=== PATIENT | female | born 1935 | race Caucasian/White ===

== ENCOUNTER 2016-06-28 23:13 | Inpatient (IN) | payer MEDICARE, OTHER ==
[~2016-06-28] VITALS: Ht 165.1 cm; Wt 54.9 kg
[2016-06-28 23:23] VITALS: Ht 165.1 cm; Wt 54.9 kg
[2016-06-28] MEDS ORDERED: SOD CHLORIDE 0.9% 500 ML IV STA (23:28)
[2016-06-29] VITALS (11 sets, daily range): BP systolic 103–141; BP diastolic 58–65; PULSE 62–70; RESP 16–20; TEMP 98.3
--- NOTE | 2016-06-29 00:19 | RADRPT ---
PROCEDURE: CT Brain without contrast. CLINICAL INDICATION: Neurologic deficit, code stroke. History of glioblastoma and radiation therap y. TECHNIQUE: A CT of the brain was performed utilizing axial sections from the skull base through th e vertex without contrast. Multiplanar re-formations were generated. Images were reviewed on a high- resolution PACS workstation. CTDIvol: 39.57 mGy. DLP: 713.51 mGy-cm. One or more of the following dose reduction techniques were used: - Automated exposure control. - Adjustment of the mA and/or kV according to patient size. - Use of iterative reconstruction technique. COMPARISON: None available FINDINGS: There is mild to moderate generalized volume loss. No hydrocephalus is seen. No definite intracrani al neoplasm is identified. There is no mass effect. No acute intracranial hemorrhage is identified. There is no extra-axial collection. No CT evidence of acute infarction is identified. There is di ffuse low attenuation in the supratentorial white matter, nonspecific. There are mild atherosclerot ic arterial calcifications. There is no significant mucosal disease in the paranasal sinuses. The visualized mastoid air cells a re clear. There is an old right occipital keegan hole. The extracranial soft tissues are unremarkable. The patient is status post bilateral lens replacement surgery. IMPRESSION: 1. No CT evidence of acute infarction or intracranial hemorrhage. 2. Mild to moderate generalized volume loss. 3. Diffuse hypodensity in the supratentorial white matter, possibly representing the sequela of rad iation therapy and/or severe chronic microvascular ischemic changes. 4. No definite intracranial neoplasm is visualized. If clinically warranted, any potential intracra nial neoplasm could be better evaluated with contrast-enhanced brain MRI. 5. Atherosclerotic arterial calcifications. 6. Old right occipital keegan hole. Critical Results were called to Dr. Wagner at 12:13 a.m. on 06/29/2016. RPTAT: HTAR .Meet Cohen MD, MD Date Time Electronically viewed and signed by .Meet Cohen MD, on 06/29/2016 00:19 .R/
--- NOTE | 2016-06-29 00:40 | RADRPT ---
PROCEDURE: Chest. CLINICAL INDICATION: Chest pain. TECHNIQUE: Single frontal view of the chest was obtained. COMPARISON: None. FINDINGS: The cardiac silhouette is enlarged. The aortic arch is calcified. There are increased interstitial markings bilaterally. There is no pleural effusion. There is no pneumothorax. There are old left- sided rib fractures. IMPRESSION: Bilateral increased interstitial markings could represent interstitial edema or chronic lung changes . Mild cardiomegaly and aortic atherosclerosis. .Saw Smalls MD, MD Date Time Electronically viewed and signed by .Saw Smalls MD, on 06/29/2016 00:40 .T/
[2016-06-29 01:06] LABS: ADD SCAN DIFF NO
[2016-06-29 01:11] LABS: BASOPHILS % 0.6 % (0.0-2.0); EOSINOPHILS % 0.4 % (0.0-7.0); HEMATOCRIT 40.2 % (37.0-47.0); HEMOGLOBIN 13.1 g/dl (12.0-16.0); LYMPHOCYTES # 0.6 10^3/ul (0.8-2.9); LYMPHOCYTES % 12.3 % (15.0-51.0); MEAN CORPUSCULAR HEMOGLOBIN 29.8 pg (29.0-33.0); MEAN CORPUSCULAR HGB CONC 32.6 g/dl (32.0-37.0); MEAN CORPUSCULAR VOLUME 91.4 fl (82.0-101.0); MEAN PLATELET VOLUME 8.8 fl (7.4-10.4); MONOCYTE # 0.6 10^3/ul (0.3-0.9); MONOCYTES % 11.1 % (0.0-11.0); NEUTROPHIL # 3.8 10^3/ul (1.6-7.5); NEUTROPHILS % 71.8 % (39.0-77.0); PLATELET COUNT 196 10^3/UL (140-415); RED CELL DISTRIBUTION WIDTH 15.2 % (11.5-14.5); WHITE BLOOD COUNT 5.2 10^3/ul (4.8-10.8)
[2016-06-29 01:18] LABS: ALBUMIN 3.4 g/dl (3.3-4.9); CHLORIDE 102 mmol/L (97-110); SODIUM 143 mmol/L (135-144)
[2016-06-29 01:19] LABS: POTASSIUM 4.3 mmol/L (3.5-5.1)
[2016-06-29 01:20] LABS: INR 0.92; PROTIME 12.4 Sec (12.2-14.2)
[2016-06-29 01:21] LABS: ALANINE AMINOTRANSFERASE 26 IU/L (13-69); ALBUMIN/GLOBULIN RATIO 1.25; ALKALINE PHOSPHATASE 66 IU/L (42-121); ANION GAP 13 (8-16); ASPARTATE AMINO TRANSFERASE 18 IU/L (15-46); BILIRUBIN,INDIRECT 0.5 mg/dl (0-1.1); BILIRUBIN,TOTAL 0.5 mg/dl (0.2-1.3); BLOOD UREA NITROGEN 23 mg/dl (7-20); CALCIUM 8.9 mg/dl (8.4-10.2); CARBON DIOXIDE 32 mmol/L (21-31); CREATININE 0.71 mg/dl (0.44-1.00); GLUCOSE 89 mg/dl (70-220); PARTIAL THROMBOPLASTIN TIME 25.8 Sec (25.0-35.0); TOTAL PROTEIN 6.1 g/dl (6.1-8.1)
[2016-06-29 01:43] LABS: BARBITURATES Negative (NEGATIVE); BENZODIAZEPINES Negative (NEGATIVE); CANNABINOIDS Negative (NEGATIVE); COCAINE Negative (NEGATIVE); OPIATES Negative (NEGATIVE)
[2016-06-29 01:54] LABS: ADD UMIC YES; URINE BILIRUBIN (Dip) NEGATIVE (NEGATIVE); URINE BLOOD (Dip) TRACE (NEGATIVE); URINE COLOR LT. YELLOW (YELLOW); URINE GLUCOSE (Dip) NEGATIVE (NEGATIVE); URINE KETONES (Dip) NEGATIVE (NEGATIVE); URINE LEUKOCYTE ESTERASE (Dip) NEGATIVE (NEGATIVE); URINE NITRITE (Dip) NEGATIVE (NEGATIVE); URINE TOTAL PROTEIN (Dip) NEGATIVE (NEGATIVE); URINE UROBILINOGEN (Dip) 0.2 E.U./dL (0.1-1.0)
[2016-06-29 02:10] LABS: BACTERIA,URINE OCCASIONAL; SQUAMOUS EPITHELIAL CELL,UR FEW
--- NOTE | 2016-06-29 02:16 | ERA ---
ER Documentation Chief Complaint Date/Time DATE: 06/29/16 TIME: 02:15 Chief Complaint decreased motor movements; has brain cancer HPI This 80-year-old female with slurred speech and decreased movement since she woke up this morning per the son. Patient has history of stage IV glioblastoma. Status post radiation treatment and chemotherapy. Patient's history is limited as she is demented. Son is at bedside able to provide relevant history and timing of onset of symptoms. ROS All systems reviewed and are negative except as per history of present illness. Allergies Allergies: Coded Allergies: acetaminophen (Verified Allergy, Severe, 06/29/16) cefazolin (Verified Allergy, Severe, 06/29/16) clindamycin (Verified Allergy, Severe, 06/29/16) codeine (Verified Allergy, Severe, 06/29/16) diazepam (Verified Allergy, Severe, 06/29/16) diphenhydramine (Verified Allergy, Severe, 06/29/16) heparin (Verified Allergy, Severe, 06/29/16) hydrocodone (Verified Allergy, Severe, 06/29/16) morphine (Verified Allergy, Severe, 06/29/16) oxycodone (Verified Allergy, Severe, 06/29/16) sulfamethoxazole (Verified Allergy, Severe, 06/29/16) trimethoprim (Verified Allergy, Severe, 06/29/16) PMhx/Soc History of Surgery: Yes (hysterectomy, back L5, & C4-6 fused, diverticulitis, hernia, bowle resecti) Anesthesia Reaction: No Hx Neurological Disorder: Yes (tumor, R hemisphere of brain) Hx Respiratory Disorders: No Hx Cardiac Disorders: No Hx Alcohol Use: No Hx Substance Use: No Hx Tobacco Use: No Smoking Status: Never smoker Physical Exam Vitals Vital Signs Date Time Temp Pulse Resp B/P Pulse Ox O2 Delivery O2 Flow Rate FiO2 06/29/16 00:51 Nasal Cannula 3 06/28/16 23:23 99.4 81 23 134/78 94 Physical Exam Const: [] Head: Atraumatic Eyes: Normal Conjunctiva ENT: Normal External Ears, Nose and Mouth. Neck: Full range of motion..~ No meningismus. Resp: Clear to auscultation bilaterally Cardio: Regular rate and rhythm, no murmurs Abd: Soft, non tender, non distended. Normal bowel sounds Skin: No petechiae or rashes Back: No midline or flank tenderness Ext: No cyanosis, or edema Neur: Awake and alert Psych: Normal Mood and Affect Result Diagram: 06/29/16 0050 06/29/16 0050 Results 24 hrs Laboratory Tests Test 06/28/16 23:44 06/29/16 00:50 Bedside Glucose 89mg/dL Activated Partial Thromboplast Time 25.8Sec Alanine Aminotransferase (ALT/SGPT) 26IU/L Albumin 3.4g/dl Albumin/Globulin Ratio 1.25 Alkaline Phosphatase 66IU/L Anion Gap 13 Aspartate Amino Transf (AST/SGOT) 18IU/L Basophils # 0.010^3/ul Basophils % 0.6% Blood Urea Nitrogen 23mg/dl Calcium Level 8.9mg/dl Carbon Dioxide Level 32mmol/L Chloride Level 102mmol/L Creatinine 0.71mg/dl Direct Bilirubin 0.00mg/dl Eosinophils # 0.010^3/ul Eosinophils % 0.4% Globulin 2.70g/dl Glucose Level 89mg/dl Hematocrit 40.2% Hemoglobin 13.1g/dl INR International Normalized Ratio 0.92 Indirect Bilirubin 0.5mg/dl Lymphocytes # 0.610^3/ul Lymphocytes % 12.3% Mean Corpuscular Hemoglobin 29.8pg Mean Corpuscular Hemoglobin Concent 32.6g/dl Mean Corpuscular Volume 91.4fl Mean Platelet Volume 8.8fl Monocytes # 0.610^3/ul Monocytes % 11.1% Neutrophils # 3.810^3/ul Neutrophils % 71.8% Nucleated Red Blood Cells # 0.010^3/ul Nucleated Red Blood Cells % 0.0/100WBC Platelet Count 84950^3/UL Potassium Level 4.3mmol/L Prothrombin Time 12.4Sec Prothrombin Time Ratio 1.0 Red Blood Count 4.4010^6/ul Red Cell Distribution Width 15.2% Sodium Level 143mmol/L Total Bilirubin 0.5mg/dl Total Protein 6.1g/dl Troponin I Pending Urine Amphetamines Screen Negative Urine Bacteria OCCASIONAL Urine Barbiturates Negative Urine Benzodiazepines Screen Negative Urine Bilirubin NEGATIVE Urine Cannabinoids Negative Urine Clarity CLEAR Urine Cocaine Screen Negative Urine Color LT. YELLOW Urine Glucose NEGATIVE% Urine Hemoglobin TRACE Urine Ketones NEGATIVE Urine Leukocyte Esterase NEGATIVE Urine Microscopic RBC 5-10/HPF Urine Microscopic WBC 0-2/HPF Urine Nitrite NEGATIVE Urine Opiates Screen Negative Urine Specific [place] 1.015 Urine Squamous Epithelial Cells FEW Urine Total Protein NEGATIVE Urine Urobilinogen 0.2 E.U./dL Urine pH 7.5 White Blood Count 5.210^3/ul Current Medications Medications (Trade) Dose Ordered Sig/Julien Route PRN Reason Start Time Stop Time Status Last Admin Dose Admin Sodium Chloride (NS) 500 ml @ 500 mls/hr Q1H STAT IV 06/28/16 23:28 06/29/16 00:27 DC 06/29/16 01:04 Procedures/MDM Chest X-ray 1V Interpreted by me: Soft Tissue: No acute abnormalities Bones: No acute abnormalities Mediastinum/Cardiac Silhouette/Lungs: No acute abnormalities EKG: Rate/Rhythm: [Normal Sinus Rhyth] QRS, ST, T-waves: [No changes consistent w/ acute ischemi] Impression: [No evidence of ischemia or arrhythmi] Medical decision-makin-year-old female altered mental status unknown etiology. At this point patient will be admitted to hospitalist to observation status for further evaluation and management. No evidence of ischemic changes on CT. No evidence of cardiac etiology. No evidence of infectious process. Departure Diagnosis: Primary Impression: Acute encephalopathy Additional Impression: Altered mental status Qualified Code: R41.82 - Altered mental status, unspecified altered mental status type Condition: Serious LESLIE TORRESLouis Jun 29, 2016 02:16
[2016-06-29 02:41] LABS: TROPONIN-I < 0.012 ng/ml (0.00-0.12)
[2016-06-29] MEDS ORDERED: LEVE-5 PO (02:59)
[2016-06-29] MEDS ORDERED: QUET25TA33 PO (02:59)
[2016-06-29] MEDS ORDERED: DIL1I IV (02:59)
[2016-06-29] MEDS: HYDROmorphONE 1 MG/ML SYG IV PRN ×2 (04:29→06:41)
[2016-06-29] MEDS ORDERED: ONDANSETRON 4 MG INJ IV PRN (05:00)
[2016-06-29] MEDS ORDERED: LORAZEPAM 2 MG INJ IV PRN (05:00)
[2016-06-29] MEDS ORDERED: HYDROCODONE/APAP (5/325) TAB PO PRN (05:00)
[2016-06-29] MEDS ORDERED: ACETAMINOPHEN 325 MG TAB PO PRN (05:00)
[2016-06-29] MEDS ORDERED: DOCUSATE SODIUM 100 MG CAP PO PRN (05:00)
[2016-06-29] MEDS ORDERED: MAGNESIUM HYDROXIDE 30ML CUP PO PRN (05:00)
[2016-06-29] MEDS ORDERED: NACL 0.9% 3 ML SYG IV SCH (05:00)
[2016-06-29] MEDS ORDERED: NITROGLYCERIN (SL) 0.4 MG TAB SL PRN (05:00)
[2016-06-29] MEDS ORDERED: hydrALAzine 20 MG INJ IV PRN (05:00)
[2016-06-29] MEDS ORDERED: ALBUTEROL/IPRATROPIUM (NEB) 3 ML AMP HHN PRN (05:00)
[2016-06-29] MEDS ORDERED: morphine 2 MG INJ IV PRN (05:00)
[2016-06-29] MEDS ORDERED: NA PHOSPHATE/BIPHOS 133 ML ENEMA PR PRN (05:00)
--- NOTE | 2016-06-29 06:12 | HP ---
DATE OF ADMISSION: 06/29/2016 CHIEF COMPLAINT: Altered mental status. HISTORY OF PRESENT ILLNESS: An 80-year-old female with past medical history of stage IV glioblastom a multiforme status post radiation and chemotherapy treatment who presents with slurred speech and a lso decreased movements since yesterday morning. Again, the patient has history of stage IV gliobla stoma. She has gotten radiation therapy and treatment in the past. Most of the information is obta ined from ER documentation as the patient is demented and unable to provide a full HPI. Apparently, these symptoms are new. When the patient came in, she had a head CT performed today that showed no evidence of any acute infarction or intracranial hemorrhage. There is some diffuse hypodensity in the supratentorial white matter, possibly representing sequelae of radiation therapy and/or severe c hronic microvascular ischemic changes. No definite intracranial neoplasm is visualized. Old right occipital bur hole. PAST MEDICAL HISTORY: As stated above. ALLERGIES: SHE HAS MULTIPLE ALLERGIES. 1. ACETAMINOPHEN. 2. CEFAZOLIN. 3. CLINDAMYCIN. 4. CODEINE. 5. DIAZEPAM. 6. BENADRYL. 7. HEPARIN. 8. HYDROCODONE. 9. MORPHINE, 10. OXYCODONE. 11. SULFAMETHOXAZOLE. 12. TRIMETHOPRIM. PAST SURGICAL HISTORY: She has had L5 back surgery, C4 and C6 spine fusion surgery, hysterectomy in the past, diverticulitis surgery in the past, hernia surgery, and a bowel resection in the past. SOCIAL HISTORY: Negative for smoking, drinking, or IV drug abuse. FAMILY HISTORY: Noncontributory. PHYSICAL EXAMINATION: VITAL SIGNS: T-max 99.4, pulse 81, respirations 23, blood pressure 134/78, saturating at 94% on price m air. GENERAL: The patient is lying in bed, no acute distress. HEENT: Pupils equal, round, react to light. Extraocular muscles intact. NECK: Supple, no thyromegaly. LUNGS: Clear to auscultation bilaterally. CARDIOVASCULAR: S1, S2 heard. No rubs or gallops. ABDOMEN: Soft, nontender, nondistended. Normal bowel sounds. No rebound or guarding. MUSCULOSKELETAL: No lower extremity bilaterally. NEUROLOGIC: Unable to fully assess because the patient is somewhat altered. LABORATORIES: CBC is normal. Comprehensive metabolic panel is normal. A1c is normal. Coags are n ormal. The UA showed negative nitrites, negative leukocyte esterase. Head CT results as mentioned above. Chest x-ray: Bilateral increased interstitial markings could represent interstitial edema o r chronic lung changes. ASSESSMENT AND PLAN: An 80-year-old female with prior history of stage IV glioblastoma who presents with slurred speech, altered mental status. 1. Slurred speech and altered mental status could be neurological ____ rule out stroke versus trans ient ischemic attack. Head CT was negative for any acute stroke. Admit her to telemetry floor, do neuro checks every 4 hours, put her on high dose aspirin, check TSH, A1c, lipid panel, consider star ting Lipitor as well, get physical therapy, occupational therapy, and speech evaluations, do neuro c hecks every 4 hours, get an MRI of the brain, 2-D echocardiogram, and carotid Dopplers as well. 2. History of stage IV glioblastoma multiforme. Continue to monitor for now. Consider consulting hematology/oncology. She is also on Keppra most likely for seizure prophylaxis and Seroquel, so we will continue that. 3. History of dementia. Continue Seroquel. 4. Gastrointestinal prophylaxis with PPI. 5. Deep venous thrombosis prophylaxis with heparin subcutaneously. Dictated By: RAMYA SMYTH Conf#: [id number] DID#: [id number]
[2016-06-29] MEDS: SOD CHLORIDE 0.45% 1,000 ML IV SCH ×2 (06:40→18:06)
[2016-06-29] MEDS: PANTOPRAZOLE 40 MG INJ IV SCH (06:41)
[2016-06-29] MEDS: HEPARIN 5,000 UNIT/0.5 ML SYG SC SCH ×2 (09:00→09:43)
--- NOTE | 2016-06-29 09:33 | RADRPT ---
PROCEDURE: US Carotids. CLINICAL INDICATION: bruit , cva TECHNIQUE: Multiple sonographic of the carotid bifurcation region and vertebral arteries were obta ined utilizing blanchard scale, duplex and color-flow imaging. The images were reviewed on a PACS worksta tion. COMPARISON: No prior studies are available for comparison. FINDINGS: Evaluation of the right carotid bifurcation region reveals mild calcific atherosclerotic disease. Evaluation of the left carotid bifurcation region reveals mild calcific atherosclerotic disease. There is antegrade flow within the vertebral arteries bilaterally. RIGHT CAROTID MEASUREMENTS: Common Carotid Tijuhl35.8 (cm/sec) Internal Carotid Artery - urxrripg21.7 (cm/sec) Internal Carotid Artery - mid66.3 (cm/sec) Internal Carotid Artery - vgyrjd51.7 (cm/sec) Internal Carotid/Common Carotid1.17 LEFT CAROTID MEASUREMENTS: Common Carotid Cpnhjx27 (cm/sec) Internal Carotid Artery - fnodcmdb96.4 (cm/sec) Internal Carotid Artery - mid68.6 (cm/sec) Internal Carotid Artery - skokft03.1 (cm/sec) Internal Carotid/Common Carotid1.13 RPTAT: AA IMPRESSION: No evidence for hemodynamically significant stenosis in the bilateral internal carotid arteries - va lidated velocity measurements with angiographic measurements, velocity criteria are extrapolated fro m diameter data as defined by the Society of Radiologists in Ultrasound Consensus Conference Radiolo gy 2003; 229;340-346. This study does indirectly reference the measurement of the distal ICA diamet er as the denominator for stenosis measurement. Normal antegrade flow in the vertebral arteries bilaterally. .Brian Childers MD, MD Date Time Electronically viewed and signed by .Brian Childers MD, on 06/29/2016 09:33 .S/
[2016-06-29] MEDS: LEVETIRACETAM 500 MG TAB PO SCH ×2 (09:42→22:22)
[2016-06-29] MEDS: QUETIAPINE 25 MG TAB PO SCH ×2 (09:42→22:22)
[2016-06-29] MEDS: ASPIRIN (EC) 325 MG TAB PO SCH (09:42)
--- NOTE | 2016-06-29 15:45 | RADRPT ---
PROCEDURE: MRI Brain without contrast. CLINICAL INDICATION: Stroke, neurologic deficit, history of glioblastoma, radiation TECHNIQUE: Multiplanar MRI of the brain without contrast was performed on a 3.0 T scanner with the following sequences obtained: T1-weighted, T2-weighted/FLAIR, diffusion weighted (with ADC map), GR E. COMPARISON: CT brain 06/29/2016 FINDINGS: There are patient motion related artifacts which limit evaluation. Evaluation is also limited witho ut contrast-enhanced sequences. No acute/recent ischemic infarction or intracranial hemorrhage is i dentified. No extra-axial fluid collection is seen. There is a right occipital calvarial keegan hole. There is a small area of decreased signal intensity with susceptibility in the right temporo-occipital periventricular region most consistent with hair cutter blanquita hemorrhage. No discrete mass lesion is seen. There is no significant mass effect. No midline shift is identified. The ventricles and sulci are mild to moderately enlarged, compatible with generalized volume loss. There are confluent areas of increased T2-weighted FLAIR signal intensity in the periventricular - d eep white matter. These may represent post radiation changes and / or chronic small vessel ischemic changes. Flow voids are identified in the proximal intracranial arteries and dural sinuses suggesting patency . There are left greater than right mastoid air cell opacification and maxillary sinus mucous retentio n cysts. IMPRESSION: 1. Evaluation limited due to motion, and lack of contrast enhanced imaging. 2. No acute intracranial pathology identified. 3. Small area of signal abnormality compatible with chronic hemorrhage in the right temporo-occipit al region without discrete mass lesion seen, and no significant mass effect. Correlate with prior im aging. 4. Mild to moderate generalized volume loss. 5. Severe white matter changes, which may represent post radiation changes and / or chronic small v essel ischemic changes. RPTAT: VV .Saleem Henriquez MD, MD Date Time Electronically viewed and signed by .Saleem Henriquez MD, MD on 06/29/2016 15:45 .O/
--- NOTE | 2016-06-29 21:54 | RADRPT ---
Echocardiogram Report Patient Name: DIYA MCCONNELL Gender: Female Date: 1935 Study Date: 29-Jun-2016 [facility] Superintendent: Gerard Marquez [facility] Location: [facility] Ref. Physician: RAMYA BAUM Quality: Good Procedures: Transthoracic echocardiogram with complete 2D, M-Mode, and doppler examination. Indications: Cerebrovascular Accident. 2D/M Mode Doppler Measurement Value Normal Ranges Measurement Value Normal Ranges LVIDd 2D 4.2 3.5 - 5.6 cm AV Peak Osmin 1.4 m/sec LVIDs 2D 1.6 2.1 - 4.1 cm AV Peak PG 8.2 mmHg LVPWd 2D 0.8 0.6 - 1.1 cm AI Peak PG 82.3 mmHg IVSd 2D 0.9 0.6 - 1.1 cm AI Peak Osmin 4.5 m/sec AoR Diam 2D 3.2 2.0 - 3.7 cm AI PHT 781.6 msec EDV 2D 79.9 cm3 LVOT Peak Osmin 0.9 m/sec ESV 2D 4.4 cm3 LVOT Peak PG 3.5 mmHg LA Dimen 2D 3.1 2.3 - 4.0 cm MV E Peak Osmin 0.6 m/sec MV A Peak Osmin 0.8 m/sec MV E/A 0.8 MV Decel Time 239 msec MV Decel Tyler 3 MV E/A 0.8 TR Peak Osmin 2.7 m/sec TR Peak PG 29.5 mmHg RVSP 33.0 mmHg Findings Left Ventricle: Normal left ventricular systolic function. Normal left ventricular cavity size. Normal left ventricular wall thickness. Ejection fraction is visually estimated at 60 %. Tissue Doppler/Mitral Doppler indices are consistent with impaired relaxation (Stage I diastolic dysfunction). Right Ventricle: Normal right ventricular size. Normal right ventricular systolic function. Left Atrium: The left atrium is normal in size. Right Atrium: The right atrium is normal in size. Mitral Valve: Normal appearance of the mitral valve. Mild mitral annular calcification. Trace mitral regurgitation. Aortic Valve: No hemodynamically significant aortic stenosis by doppler. Aortic cusps appear mildly calcified. Mild aortic valve regurgitation. Tricuspid Valve: Normal appearance of the tricuspid valve. Estimated peak PA systolic pressure 33 mmHg. There is mild tricuspid regurgitation. Pulmonic Valve: Normal pulmonic valve appearance. There is trace pulmonic regurgitation. Pericardium: Normal pericardium with no significant pericardial effusion. Aorta: Normal aortic root. IVC: Normal size and normal respiratory collapse consistent with normal right atrial pressure. Conclusions Normal left ventricular systolic function. Normal left ventricular cavity size. Normal left ventricular wall thickness. Ejection fraction is visually estimated at 60 %. Tissue Doppler/Mitral Doppler indices are consistent with impaired relaxation (Stage I diastolic dysfunction). Normal right ventricular size. Normal right ventricular systolic function. The left atrium is normal in size. The right atrium is normal in size. Estimated peak PA systolic pressure 33 mmHg. There is mild tricuspid regurgitation. No hemodynamically significant aortic stenosis by doppler. Mild aortic valve regurgitation. Trace mitral regurgitation. Normal pericardium with no significant pericardial effusion. Electronically Signed By: Brandon Horton 29-Jun-2016 21:53:38 -0800 Patient Name: DIYA MCCONNELL Study Date: 29-Jun-2016 [id number]
[2016-06-30] VITALS (12 sets, daily range): BP systolic 110–139; BP diastolic 55–80; PULSE 72–82; RESP 16–19
[2016-06-30] MEDS: PANTOPRAZOLE 40 MG INJ IV SCH (06:39)
[2016-06-30 07:56] LABS: ADD SCAN DIFF NO
[2016-06-30 07:59] LABS: BASOPHILS % 0.5 % (0.0-2.0); EOSINOPHILS # 0.1 10^3/ul (0.0-0.5); HEMATOCRIT 42.2 % (37.0-47.0); HEMOGLOBIN 13.9 g/dl (12.0-16.0); LYMPHOCYTES # 0.6 10^3/ul (0.8-2.9); LYMPHOCYTES % 10.1 % (15.0-51.0); MEAN CORPUSCULAR HEMOGLOBIN 29.2 pg (29.0-33.0); MEAN CORPUSCULAR HGB CONC 32.9 g/dl (32.0-37.0); MEAN CORPUSCULAR VOLUME 88.7 fl (82.0-101.0); MEAN PLATELET VOLUME 9.1 fl (7.4-10.4); MONOCYTE # 0.7 10^3/ul (0.3-0.9); MONOCYTES % 11.4 % (0.0-11.0); NEUTROPHIL # 4.6 10^3/ul (1.6-7.5); NEUTROPHILS % 74.7 % (39.0-77.0); PLATELET COUNT 217 10^3/UL (140-415); RED BLOOD COUNT 4.76 10^6/ul (4.20-5.40); RED CELL DISTRIBUTION WIDTH 14.4 % (11.5-14.5); WHITE BLOOD COUNT 6.1 10^3/ul (4.8-10.8)
[2016-06-30 08:24] LABS: POTASSIUM 3.7 mmol/L (3.5-5.1)
[2016-06-30 08:26] LABS: CREATININE 0.64 mg/dl (0.44-1.00)
[2016-06-30 08:27] LABS: CALCIUM 8.6 mg/dl (8.4-10.2); PHOSPHORUS 3.4 mg/dl (2.5-4.9)
[2016-06-30 08:28] LABS: CHOL/HDL RATIO 5.3 RATIO
[2016-06-30 08:54] LABS: THYROID STIMULATING HORMONE 2.6 MIU/L (0.465-4.680)
[2016-06-30] MEDS: SOD CHLORIDE 0.45% 1,000 ML IV SCH ×2 (09:45→20:52)
[2016-06-30] MEDS: QUETIAPINE 25 MG TAB PO SCH (09:45)
[2016-06-30] MEDS: LEVETIRACETAM 500 MG TAB PO SCH ×2 (09:45→20:47)
[2016-06-30] MEDS: ASPIRIN (EC) 325 MG TAB PO SCH (09:45)
[2016-06-30] MEDS: DOCUSATE SODIUM 100 MG CAP PO SCH ×2 (12:00→20:47)
--- NOTE | 2016-06-30 18:16 | PN ---
Date/Time of Note Date/Time of Note DATE: 06/30/16 TIME: 18:10 Assessment/Plan VTE Prophylaxis VTE Prophylaxis Intervention: heparin, SCD's Lines/Catheters IV Catheter Type (from Nrs): Peripheral IV Urinary Cath still in place: Yes Reason Cath still needed: other (indicate) Assessment/Plan Assessment/Plan 80-year-old female with prior history of stage IV glioblastoma who presents with slurred speech, altered mental status. 1. acute encephalopathy: cause unclear, all imaging so far negative. 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 Son however denies knowledge of old hemorrhagic stroke. Possible post radiation encephalopathy versus medication induced (patient is on Seroquel and Keppra and Dilaudid) Will get neurology consult and EEG to assess 2. Hx of Stage 4 glioblastoma multiforme s/p radiation and chemo at [facility] 3. Multiple drug allergies 4. Chronic dementia with patient able to perform ADLs at baseline. PROPHYLAXIS: protonix / heparin Subjective 24 Hr Interval Summary Free Text/Dictation patient more alert, still very lethargic and somewhat confused. spoke with son in detail, per him she is able shanique ambulate and perform ADLs on her own prior to hospitalization reviewed MRI results with him Exam/Review of Systems Vital Signs Vitals Vital Signs Date Time Temp Pulse Resp B/P Pulse Ox O2 Delivery O2 Flow Rate FiO2 06/30/16 17:43 2.0 06/30/16 16:09 76 06/30/16 11:55 98.0 19 124/78 96 06/30/16 08:15 Nasal Cannula 06/30/16 01:35 28 Intake and Output 06/29/16 06/29/16 06/30/16 14:59 22:59 06:59 Intake Total 945 ml 1000 ml Output Total 1700 ml 1500 ml Balance -755 ml -500 ml Exam Constitutional: frail, oriented (x2), No distress Psych: confusion Head: normocephalic Eyes: PERRL ENMT: No mucosa pink and moist Neck: other (angled abnormally), No supple Respiratory: crackles/rales, diminished breath sounds Gastrointestinal: bowel sounds, non-tender, soft Extremities: No edema Neurological: confused, lethargic, No focal weakness, No nl mental status Results Result Diagram: 06/30/16 0720 06/30/16 0720 Results 24 hrs Laboratory Tests Test 06/30/16 07:20 Anion Gap 14 Basophils # 0.0 Basophils % 0.5 Blood Urea Nitrogen 10 # Calcium Level 8.6 Carbon Dioxide Level 28 Chloride Level 100 Cholesterol Level 268 H Cholesterol/HDL Ratio 5.3 Creatinine 0.64 Eosinophils # 0.1 Eosinophils % 1.0 Glucose Level 84 HDL Cholesterol 50 Hematocrit 42.2 Hemoglobin 13.9 Hemoglobin A1c 5.8 LDL Cholesterol, Calculated 192 Lymphocytes # 0.6 L Lymphocytes % 10.1 L Magnesium Level 2.0 Mean Corpuscular Hemoglobin 29.2 Mean Corpuscular Hemoglobin Concent 32.9 Mean Corpuscular Volume 88.7 Mean Platelet Volume 9.1 Monocytes # 0.7 Monocytes % 11.4 H Neutrophils # 4.6 Neutrophils % 74.7 Nucleated Red Blood Cells # 0.0 Nucleated Red Blood Cells % 0.0 Phosphorus Level 3.4 Platelet Count 217 Potassium Level 3.7 Red Blood Count 4.76 Red Cell Distribution Width 14.4 Sodium Level 138 Thyroid Stimulating Hormone (TSH) 2.600 Triglycerides Level 130 White Blood Count 6.1 Medications Medications Current Medications Levetiracetam (Keppra) 500 mg BID PO Last administered on 06/30/16 09:45; Admin Dose 500 MG; Start 06/29/16 at 09:00 Ondansetron HCl (Zofran Inj) 4 mg Q6H PRN IV NAUSEA AND/OR VOMITING; Start 06/29 at 05:00 Acetaminophen (Tylenol Tab) 650 mg Q6H PRN PO PAIN LEVEL 1-3 OR FEVER; Start at 05:00 Acetaminophen/ Hydrocodone Bitart ([place] (5/325)) 1 tab Q6H PRN PO MODERATE PAIN LEVEL 4-6; Start 06/29/16 at 05:00 Magnesium Hydroxide (Milk Of Mag) 30 ml DAILY PRN PO CONSTIPATION; Start at 05:00 Sodium Biphosphate/ Sodium Phosphate (Fleet Enema) 133 ml DAILY PRN [place] CONSTIPATION; Start 06/29/16 at 05:00 Heparin Sodium (Porcine) 5000 unit 5,000 unit Q12 SC ; Start 06/29/16 at 09:00; Status Future Hold Sodium Chloride (1/2 NS) 1,000 ml @ 75 mls/hr [id number] IV Last administered on 06/30/16 09:45; Admin Dose 75 MLS/HR; Start 06/29/16 at 04:46 Lorazepam (Ativan) 0.5 mg Q6H PRN IV ANXIETY; Start 06/29/16 at 05:00 Hydralazine HCl (Apresoline) 10 mg Q6H PRN IV ELEVATED BLOOD PRESSURE; Start at 05:00 Nitroglycerin (Nitroglycerin (Sl Tab) 0.4 Mg) 1 tab Q5M PRN SL ANGINA; Start at 05:00 Aspirin (Ecotrin) 325 mg DAILY PO Last administered on 06/30/16 09:45; Admin Dose 325 MG; Start 06/29/16 at 09:00 Miscellaneous Information (*Order Clarification Bulletin) MEDICATION REQUIRES CLARIFICATION:HE... Q8H XX Last administered on 06/29/16 15:25; Admin Dose 1 EA; Start 06/29/16 at 14:00 Docusate Sodium (Colace) 100 mg BID PO ; Start 06/30/16 at 12:00 Pantoprazole (Protonix Tab) 40 mg DAILY@06 PO ; Start 07/01/16 at 06:00 Procedures Procedures PROCEDURE: US Carotids. CLINICAL INDICATION: bruit , cva TECHNIQUE: Multiple sonographic of the carotid bifurcation region and vertebral arteries were obtained utilizing blanchard scale, duplex and color-flow imaging. The images were reviewed on a PACS workstation. COMPARISON: No prior studies are available for comparison. FINDINGS: Evaluation of the right carotid bifurcation region reveals mild calcific atherosclerotic disease. Evaluation of the left carotid bifurcation region reveals mild calcific atherosclerotic disease. There is antegrade flow within the vertebral arteries bilaterally. RIGHT CAROTID MEASUREMENTS: Common Carotid Artery 65.8 (cm/sec) Internal Carotid Artery - proximal 50.7 (cm/sec) Internal Carotid Artery - mid 66.3 (cm/sec) Internal Carotid Artery - distal 71.7 (cm/sec) Internal Carotid/Common Carotid 1.17 LEFT CAROTID MEASUREMENTS: Common Carotid Artery 66 (cm/sec) Internal Carotid Artery - proximal 62.4 (cm/sec) Internal Carotid Artery - mid 68.6 (cm/sec) Internal Carotid Artery - distal 72.1 (cm/sec) Internal Carotid/Common Carotid 1.13 RPTAT: AA IMPRESSION: No evidence for hemodynamically significant stenosis in the bilateral internal carotid arteries - validated velocity measurements with angiographic measurements, velocity criteria are extrapolated from diameter data as defined by the Society of Radiologists in Ultrasound Consensus Conference Radiology 2003 ; 229;340-346. This study does indirectly reference the measurement of the distal ICA diameter as the denominator for stenosis measurement. Normal antegrade flow in the vertebral arteries bilaterally. .Brian Childers MD, MD Date Time Electronically viewed and signed by .Brian Childers MD, MD on 06/29/2016 09: 33 .S/ CC: RAMYA BAUM PROCEDURE: MRI Brain without contrast. CLINICAL INDICATION: Stroke, neurologic deficit, history of glioblastoma, radiation TECHNIQUE: Multiplanar MRI of the brain without contrast was performed on a 3.0 T scanner with the following sequences obtained: T1-weighted, T2-weighted/ FLAIR, diffusion weighted (with ADC map), GRE. COMPARISON: CT brain 06/29/2016 FINDINGS: There are patient motion related artifacts which limit evaluation. Evaluation is also limited without contrast-enhanced sequences. No acute/recent ischemic infarction or intracranial hemorrhage is identified. No extra-axial fluid collection is seen. There is a right occipital calvarial keegan hole. There is a small area of decreased signal intensity with susceptibility in the right temporo-occipital periventricular region most consistent with chronic hemorrhage. No discrete mass lesion is seen. There is no significant mass effect. No midline shift is identified. The ventricles and sulci are mild to moderately enlarged, compatible with generalized volume loss. There are confluent areas of increased T2-weighted FLAIR signal intensity in the periventricular - deep white matter. These may represent post radiation changes and / or chronic small vessel ischemic changes. Flow voids are identified in the proximal intracranial arteries and dural sinuses suggesting patency. There are left greater than right mastoid air cell opacification and maxillary sinus mucous retention cysts. IMPRESSION: 1. Evaluation limited due to motion, and lack of contrast enhanced imaging. 2. No acute intracranial pathology identified. 3. Small area of signal abnormality compatible with chronic hemorrhage in the right temporo-occipital region without discrete mass lesion seen, and no significant mass effect. Correlate with prior imaging. 4. Mild to moderate generalized volume loss. 5. Severe white matter changes, which may represent post radiation changes and / or chronic small vessel ischemic changes. RPTAT: VV .Saleem Henriquez MD, MD Date Time Electronically viewed and signed by .Saleem Henriquez MD, on 06/29/2016 15:45 .O/ CC: RAMYA BAUM Urine and blood cultures negative so far BEA MACDONALD Jun 30, 2016 18:16
--- NOTE | 2016-06-30 18:49 | CONS ---
Date/Time of Note Date/Time of Note DATE: 06/30/16 TIME: 18:48 Assessment Additional comments: Full neurology consult dictated. Thanks ELIANA LARSON MD Jun 30, 2016 18:49
--- NOTE | 2016-06-30 20:21 | CONS ---
DATE OF ADMISSION: 06/29/2016 DATE OF CONSULTATION: 06/30/2016 Thank you, Dr. Macdonald, for your kind referral for evaluation of encephalopathy. HISTORY OF PRESENT ILLNESS: According to the chart, she is an 80-year-old lady with a past medical history of glioblastoma multiforme, stage IV, status post radiation and chemotherapy at [facility] who, according to ER notes, the patient was brought in by paramedics from home where she lives with her son. In ERR note, per patient's son, she has been declining mentally since biopsy 03/10/2016, radiation ended in April. According to the note, the tumor was reduced by 50% . The patient is often confused, but on the day of admission was more confused. Suddenly was not able to walk, speak, or move well, urinated on herself without knowing. MEDICATIONS PRIOR TO ADMISSION: 1. Dilaudid. 2. Keppra 500 twice daily 3. Quetiapine 25 twice daily. ALLERGIES: SHE IS ALLERGIC TO: 1. ACETAMINOPHEN. 2. CEFAZOLIN. 3. CLINDAMYCIN. 4. CODEINE. 5. DIAZEPAM. 6. BENADRYL. 7. HEPARIN. 8. HYDROCODONE. 9. MORPHINE. CURRENT MEDICATIONS: 1. Protonix. 2. Colace. 3. Same Keppra 500 twice daily. 4. Aspirin 325. 5. [place] as needed. 6. Different p.r.n. LABORATORY DATA: Shows essentially normal CBC. Comprehensive metabolic panel on admission showing elevated BUN 23, creatinine 0.71, but today with appropriate hydration, it became 10 and 0.64. Rest of comprehensive metabolic panel within normal limits. Cholesterol 268, LDL 192. Free T4 and TSH within normal limits. PT, PTT within normal limits. Urinalysis within normal limits as well as tox screen. SOCIAL HISTORY: No alcohol, tobacco, drug use. FAMILY HISTORY: Noncontributory. SURGICAL HISTORY: She had a history of lower back as well as spinal surgery. IMAGING: CAT scan of the head was done followed by MRI of the brain. MRI of the brain did not show any acute abnormality, though evaluation was limited because of motion and lack of contrast enhancement. There is a small area of signal abnormality compatible with chronic hemorrhage in the right temporal occipital region without discrete mass lesion and no significant mass effect. Also, severe white matter disease may represent chronic small vessel ischemic changes versus or plus postradiation changes. Carotid ultrasound showing no hemodynamically significant stenosis. REVIEW OF SYSTEMS: Unable to obtain. PHYSICAL EXAMINATION: VITAL SIGNS: Temperature 98.0, pulse 76, respirations 19, 124/78 blood pressure. GENERAL: She is not in acute distress, lying in bed, not cooperative with examination. She talks to herself. HEENT: Normocephalic head. NECK: Supple. LUNGS: Clear to auscultation bilaterally. CARDIAC: Normal cardiac rhythm and sounds. ABDOMEN: Soft. EXTREMITIES: No cyanosis, clubbing, or edema. NEUROLOGIC: She is oriented x1 only. Again, she is not cooperative, but grossly, she responds to visual threat bilaterally. Pupils seem to be reactive sluggishly from 3 to 2 mm bilaterally. Extraocular movements intact. Symmetrical face. The patient blinks and grimaces symmetrically. Motor strength examination showing that she moves all extremities spontaneously and to minimal noxious stimuli. She did not allow me to check her reflexes. Upgoing toes in the feet. Coordination seems to be preserved when she is reaching for objects. I forgot to mention that her speech is not slurred. IMPRESSION AND PLAN: Transient encephalopathy, slurred speech and generalized weakness, etiology? Possibly was related to dehydration. Possibility of seizure in patient with glioblastoma is also on differential. I would increase her Keppra slightly and make it 750 mg twice daily instead of 500. She is confused and hallucinating. Will restart home medication dose of Seroquel 25 twice daily. Most likely her encephalopathy, at least according to ER note, has been a longstanding and related to her cerebral neoplasm. Will obtain EEG to exclude any ongoing seizure activity and for further evaluation of encephalopathy. MRI of the brain, even though a limited study, but did not show any acute changes. No strokes. So continue current treatments. Thank you very much for this interesting consultation. Dictated By: ELIANA CONNOLLY/LUKAS Conf#: [id number] DID#: [id number] CC: BEA MACDONALD MD; RAMYA BAUM;*EndCC* MTDD
[2016-07-01] VITALS (13 sets, daily range): BP systolic 85–124; BP diastolic 50–64; PULSE 67–88; RESP 16–20
[2016-07-01] MEDS: PANTOPRAZOLE (EC) 40 MG TAB PO SCH (05:42)
[2016-07-01] MEDS: ASPIRIN (EC) 325 MG TAB PO SCH (09:23)
[2016-07-01] MEDS: DOCUSATE SODIUM 100 MG CAP PO SCH ×2 (09:23→20:44)
[2016-07-01] MEDS: SOD CHLORIDE 0.45% 1,000 ML IV SCH (09:24)
[2016-07-01] MEDS: LEVETIRACETAM 500 MG TAB PO SCH ×2 (09:24→20:44)
[2016-07-01 14:29] LABS: ADD SCAN DIFF NO
[2016-07-01 14:31] LABS: BASOPHIL # 0.1 10^3/ul (0.0-0.1); BASOPHILS % 0.8 % (0.0-2.0); EOSINOPHILS % 0.5 % (0.0-7.0); HEMATOCRIT 42.5 % (37.0-47.0); HEMOGLOBIN 14.2 g/dl (12.0-16.0); LYMPHOCYTES # 0.8 10^3/ul (0.8-2.9); LYMPHOCYTES % 12.3 % (15.0-51.0); MEAN CORPUSCULAR HGB CONC 33.4 g/dl (32.0-37.0); MEAN CORPUSCULAR VOLUME 89.7 fl (82.0-101.0); MEAN PLATELET VOLUME 8.9 fl (7.4-10.4); MONOCYTE # 0.8 10^3/ul (0.3-0.9); MONOCYTES % 12.6 % (0.0-11.0); NEUTROPHIL # 4.5 10^3/ul (1.6-7.5); NEUTROPHILS % 71.6 % (39.0-77.0); PLATELET COUNT 247 10^3/UL (140-415); RED BLOOD COUNT 4.74 10^6/ul (4.20-5.40); RED CELL DISTRIBUTION WIDTH 14.4 % (11.5-14.5); WHITE BLOOD COUNT 6.3 10^3/ul (4.8-10.8)
[2016-07-01 14:41] LABS: POTASSIUM 4.3 mmol/L (3.5-5.1)
[2016-07-01 14:44] LABS: CREATININE 0.69 mg/dl (0.44-1.00)
[2016-07-01 14:45] LABS: CALCIUM 8.5 mg/dl (8.4-10.2)
--- NOTE | 2016-07-01 18:17 | PN ---
Date/Time of Note Date/Time of Note DATE: 07/01/16 TIME: 18:13 Assessment/Plan VTE Prophylaxis VTE Prophylaxis Intervention: heparin Lines/Catheters IV Catheter Type (from Nrs): Peripheral IV Urinary Cath still in place: Yes Reason Cath still needed: other (indicate) Assessment/Plan Assessment/Plan 80-year-old female with prior history of stage IV glioblastoma who presents with slurred speech, altered mental status. 1. acute encephalopathy: cause unclear, all imaging so far negative. 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 Son however denies knowledge of old hemorrhagic stroke. Possible post radiation encephalopathy versus medication induced (patient is on Seroquel and Keppra and Dilaudid) Will get neurology consult and EEG to assess 2. Hx of Stage 4 glioblastoma multiforme s/p radiation and chemo at [facility] 3. Multiple drug allergies 4. Chronic dementia with patient able to perform ADLs at baseline. PROPHYLAXIS: protonix / heparin DISPO: PT eval and then probable placement. Subjective 24 Hr Interval Summary Free Text/Dictation patient is more alert, confusion is now much more prominent spoke with son, this is her new baseline since brain radiation, but she's usually able to ambulate Psychological: confusion Exam/Review of Systems Vital Signs Vitals Vital Signs Date Time Temp Pulse Resp B/P Pulse Ox O2 Delivery O2 Flow Rate FiO2 07/01/16 16:48 86 07/01/16 16:12 2.0 07/01/16 15:46 97.9 20 114/59 90 07/01/16 08:00 Nasal Cannula 06/30/16 01:35 28 Intake and Output 06/30/16 06/30/16 07/01/16 14:59 22:59 06:59 Intake Total 250 ml 1025 ml Output Total 1500 ml 1200 ml Balance -1250 ml -175 ml Exam Constitutional: frail, oriented (x2), No distress Psych: confusion Head: normocephalic Eyes: PERRL ENMT: No mucosa pink and moist Neck: other (angled abnormally), No supple Respiratory: crackles/rales, diminished breath sounds Gastrointestinal: bowel sounds, non-tender, soft Extremities: No edema Neurological: confused, lethargic, No focal weakness, Results Result Diagram: 07/01/16 1410 07/01/16 1410 Results 24 hrs Laboratory Tests Test 07/01/16 14:10 Anion Gap 15 Basophils # 0.1 Basophils % 0.8 Blood Urea Nitrogen 15 Calcium Level 8.5 Carbon Dioxide Level 29 Chloride Level 100 Creatinine 0.69 Eosinophils # 0.0 Eosinophils % 0.5 Glucose Level 128 # Hematocrit 42.5 Hemoglobin 14.2 Lymphocytes # 0.8 Lymphocytes % 12.3 L Mean Corpuscular Hemoglobin 30.0 Mean Corpuscular Hemoglobin Concent 33.4 Mean Corpuscular Volume 89.7 Mean Platelet Volume 8.9 Monocytes # 0.8 Monocytes % 12.6 H Neutrophils # 4.5 Neutrophils % 71.6 Nucleated Red Blood Cells # 0.0 Nucleated Red Blood Cells % 0.0 Platelet Count 247 Potassium Level 4.3 Red Blood Count 4.74 Red Cell Distribution Width 14.4 Sodium Level 140 White Blood Count 6.3 Medications Medications Current Medications Ondansetron HCl (Zofran Inj) 4 mg Q6H PRN IV NAUSEA AND/OR VOMITING; Start 06/29 at 05:00 Acetaminophen (Tylenol Tab) 650 mg Q6H PRN PO PAIN LEVEL 1-3 OR FEVER; Start at 05:00 Acetaminophen/ Hydrocodone Bitart ([place] (5/325)) 1 tab Q6H PRN PO MODERATE PAIN LEVEL 4-6; Start 06/29/16 at 05:00 Magnesium Hydroxide (Milk Of Mag) 30 ml DAILY PRN PO CONSTIPATION; Start at 05:00 Sodium Biphosphate/ Sodium Phosphate (Fleet Enema) 133 ml DAILY PRN [place] CONSTIPATION; Start 06/29/16 at 05:00 Heparin Sodium (Porcine) 5000 unit 5,000 unit Q12 SC ; Start 06/29/16 at 09:00; Status Future Hold Sodium Chloride (1/2 NS) 1,000 ml @ 40 mls/hr Q24H IV Last administered on 07/01t 09:24; Admin Dose 75 MLS/HR; Start 06/29/16 at 04:46 Lorazepam (Ativan) 0.5 mg Q6H PRN IV ANXIETY; Start 06/29/16 at 05:00 Hydralazine HCl (Apresoline) 10 mg Q6H PRN IV ELEVATED BLOOD PRESSURE; Start at 05:00 Nitroglycerin (Nitroglycerin (Sl Tab) 0.4 Mg) 1 tab Q5M PRN SL ANGINA; Start at 05:00 Aspirin (Ecotrin) 325 mg DAILY PO Last administered on 07/01/16 09:23; Admin Dose 325 MG; Start 06/29/16 at 09:00 Miscellaneous Information (*Order Clarification Bulletin) MEDICATION REQUIRES CLARIFICATION:HE... Q8H XX Last administered on 06/29/16 15:25; Admin Dose 1 EA; Start 06/29/16 at 14:00 Docusate Sodium (Colace) 100 mg BID PO Last administered on 07/01/16 09:23; Admin Dose 100 MG; Start 06/30/16 at 12:00 Pantoprazole (Protonix Tab) 40 mg DAILY@06 PO Last administered on 07/01/16 05: 42; Admin Dose 40 MG; Start 07/01/16 at 06:00 Levetiracetam (Keppra) 750 mg BID PO ; Start 07/01/16 at 21:00 Procedures Procedures PROCEDURE: MRI Brain without contrast. CLINICAL INDICATION: Stroke, neurologic deficit, history of glioblastoma, radiation TECHNIQUE: Multiplanar MRI of the brain without contrast was performed on a 3.0 T scanner with the following sequences obtained: T1-weighted, T2-weighted/ FLAIR, diffusion weighted (with ADC map), GRE. COMPARISON: CT brain 06/29/2016 FINDINGS: There are patient motion related artifacts which limit evaluation. Evaluation is also limited without contrast-enhanced sequences. No acute/recent ischemic infarction or intracranial hemorrhage is identified. No extra-axial fluid collection is seen. There is a right occipital calvarial keegan hole. There is a small area of decreased signal intensity with susceptibility in the right temporo-occipital periventricular region most consistent with chronic hemorrhage. No discrete mass lesion is seen. There is no significant mass effect. No midline shift is identified. The ventricles and sulci are mild to moderately enlarged, compatible with generalized volume loss. There are confluent areas of increased T2-weighted FLAIR signal intensity in the periventricular - deep white matter. These may represent post radiation changes and / or chronic small vessel ischemic changes. Flow voids are identified in the proximal intracranial arteries and dural sinuses suggesting patency. There are left greater than right mastoid air cell opacification and maxillary sinus mucous retention cysts. IMPRESSION: 1. Evaluation limited due to motion, and lack of contrast enhanced imaging. 2. No acute intracranial pathology identified. 3. Small area of signal abnormality compatible with chronic hemorrhage in the right temporo-occipital region without discrete mass lesion seen, and no significant mass effect. Correlate with prior imaging. 4. Mild to moderate generalized volume loss. 5. Severe white matter changes, which may represent post radiation changes and / or chronic small vessel ischemic changes. RPTAT: VV .Saleem Henriquez MD, MD Date Time Electronically viewed and signed by .Saleem Henriquez MD, MD on 06/29/2016 15:45 BEA MACDONALD Jul 01, 2016 18:16
--- NOTE | 2016-07-01 18:53 | SP ---
DATE OF PROCEDURE: INDICATION: An 80-year-old lady with history of glioblastoma status post radiation and chemotherapy , presented with worsening of confusion. She is on Keppra 500 twice daily, no clear seizures. She is confused, constantly talking. DESCRIPTION OF PROCEDURE: Routine EEG was recorded digitally. [id number] and [id number] sheyal ages were recorded and reviewed. All impedances were measured and recorded. Cap electrodes were pl aced in accordance with International 10-20 system of electrode placement. FINDINGS: Symmetrically distributed background activity of low to medium amplitude ranging in frequ ency between 5 to 7 cycles per second was seen bilaterally. The patient is restless, constantly manny mamadou, multiple movement and eye movement artifacts were seen. No epileptiform transients observed. No signs of ongoing electrographic seizures or lateralized slowing. IMPRESSION: Abnormal study secondary to mild background slowing, which could reflect encephalopathy , possibly toxic metabolic versus related to glioblastoma. This finding is nonspecific. No ongoing seizure activity or epileptiform activity seen. Dictated By: ELIANA CONNOLLY/LUKAS Conf#: [id number] DID#: [id number]
--- NOTE | 2016-07-01 19:57 | CONS ---
Date/Time of Note Date/Time of Note DATE: 07/01/16 TIME: 19:53 Consult Date/Type/Reason Admit Date/Time Jul 01, 2016 at 10:05 Initial Consult Date Type of Consultation: neurology Subjective no seizures. calmer today, still confused. Objective Vital Signs Date Time Temp Pulse Resp B/P Pulse Ox O2 Delivery O2 Flow Rate FiO2 07/01/16 18:50 98.1 60 16 116/63 92 07/01/16 16:12 2.0 07/01/16 08:00 Nasal Cannula 06/30/16 01:35 28 Intake and Output 06/30/16 06/30/16 07/01/16 15:00 23:00 07:00 Intake Total 250 ml 1025 ml Output Total 1500 ml 1200 ml Balance -1250 ml -175 ml Results/Medications Result Diagram: 07/01/16 1410 07/01/16 1410 Results 24 hrs Laboratory Tests Test 07/01/16 14:10 Anion Gap 15 Basophils # 0.1 Basophils % 0.8 Blood Urea Nitrogen 15 Calcium Level 8.5 Carbon Dioxide Level 29 Chloride Level 100 Creatinine 0.69 Eosinophils # 0.0 Eosinophils % 0.5 Glucose Level 128 # Hematocrit 42.5 Hemoglobin 14.2 Lymphocytes # 0.8 Lymphocytes % 12.3 L Mean Corpuscular Hemoglobin 30.0 Mean Corpuscular Hemoglobin Concent 33.4 Mean Corpuscular Volume 89.7 Mean Platelet Volume 8.9 Monocytes # 0.8 Monocytes % 12.6 H Neutrophils # 4.5 Neutrophils % 71.6 Nucleated Red Blood Cells # 0.0 Nucleated Red Blood Cells % 0.0 Platelet Count 247 Potassium Level 4.3 Red Blood Count 4.74 Red Cell Distribution Width 14.4 Sodium Level 140 White Blood Count 6.3 Medications Current Medications Ondansetron HCl (Zofran Inj) 4 mg Q6H PRN IV NAUSEA AND/OR VOMITING; Start 06/29 at 05:00 Acetaminophen (Tylenol Tab) 650 mg Q6H PRN PO PAIN LEVEL 1-3 OR FEVER; Start at 05:00 Acetaminophen/ Hydrocodone Bitart ([place] (5/325)) 1 tab Q6H PRN PO MODERATE PAIN LEVEL 4-6; Start 06/29/16 at 05:00 Magnesium Hydroxide (Milk Of Mag) 30 ml DAILY PRN PO CONSTIPATION; Start at 05:00 Sodium Biphosphate/ Sodium Phosphate (Fleet Enema) 133 ml DAILY PRN [place] CONSTIPATION; Start 06/29/16 at 05:00 Heparin Sodium (Porcine) 5000 unit 5,000 unit Q12 SC ; Start 06/29/16 at 09:00; Status Future Hold Sodium Chloride (1/2 NS) 1,000 ml @ 40 mls/hr Q24H IV Last administered on 07/01 09:24; Admin Dose 75 MLS/HR; Start 06/29/16 at 04:46 Lorazepam (Ativan) 0.5 mg Q6H PRN IV ANXIETY; Start 06/29/16 at 05:00 Hydralazine HCl (Apresoline) 10 mg Q6H PRN IV ELEVATED BLOOD PRESSURE; Start at 05:00 Nitroglycerin (Nitroglycerin (Sl Tab) 0.4 Mg) 1 tab Q5M PRN SL ANGINA; Start at 05:00 Aspirin (Ecotrin) 325 mg DAILY PO Last administered on 07/01/16 09:23; Admin Dose 325 MG; Start 06/29/16 at 09:00 Miscellaneous Information (*Order Clarification Bulletin) MEDICATION REQUIRES CLARIFICATION:HE... Q8H XX Last administered on 06/29/16 15:25; Admin Dose 1 EA; Start 06/29/16 at 14:00 Docusate Sodium (Colace) 100 mg BID PO Last administered on 07/01/16 09:23; Admin Dose 100 MG; Start 06/30/16 at 12:00 Pantoprazole (Protonix Tab) 40 mg DAILY@06 PO Last administered on 07/01/16 05: 42; Admin Dose 40 MG; Start 07/01/16 at 06:00 Levetiracetam (Keppra) 750 mg BID PO ; Start 07/01/16 at 21:00 Assessment/Plan Chief Complaint/Hosp Course PHYSICAL EXAMINATION: GENERAL: She is not in acute distress, lying in bed, not cooperative with examination. She talks to herself. HEENT: Normocephalic head. NECK: Supple. LUNGS: Clear to auscultation bilaterally. CARDIAC: Normal cardiac rhythm and sounds. ABDOMEN: Soft. EXTREMITIES: No cyanosis, clubbing, or edema. NEUROLOGIC: She is oriented x1 only. Fluent speech. Again, she is not cooperative, she responds to visual threat bilaterally. Pupils seem to be reactive sluggishly from 3 to 2 mm bilaterally. Extraocular movements intact. Symmetrical face. The patient blinks and grimaces symmetrically. Motor strength examination showing that she moves all extremities spontaneously and to minimal noxious stimuli. Upgoing toes in the feet. Coordination seems to be preserved when she is reaching for objects. IMPRESSION AND PLAN: Transient worsening encephalopathy, slurred speech and generalized weakness, etiology? Possibly was related to dehydration. Possibility of seizure in patient with glioblastoma is also on differential. Continue Keppra 750 mg twice daily instead of 500. Baseline encephalopathy secondary to glioblastoma. EEG no seizures. Discharge planning Problems: ELIANA LARSON MD Jul 01, 2016 19:57
[2016-07-02] VITALS (7 sets, daily range): BP systolic 91–131; BP diastolic 54–78; PULSE 70–85; RESP 16–18
[2016-07-02] MEDS: PANTOPRAZOLE (EC) 40 MG TAB PO SCH (05:31)
[2016-07-02] MEDS: ASPIRIN (EC) 325 MG TAB PO SCH (08:34)
[2016-07-02] MEDS: LEVETIRACETAM 500 MG TAB PO SCH ×2 (08:34→20:48)
[2016-07-02] MEDS: DOCUSATE SODIUM 100 MG CAP PO SCH ×2 (08:34→20:48)
--- NOTE | 2016-07-02 11:12 | PN ---
Date/Time of Note Date/Time of Note DATE: 07/02/16 TIME: 11:10 Assessment/Plan VTE Prophylaxis VTE Prophylaxis Intervention: SCD's VTE Contraindication Reason: hemorrhagic cerebral infarction Lines/Catheters IV Catheter Type (from Nrs): Saline Lock Urinary Cath still in place: Yes Reason Cath still needed: other (indicate) Assessment/Plan Assessment/Plan 80-year-old female with prior history of stage IV glioblastoma who presents with slurred speech, altered mental status. 1. Acute encephalopathy: resolved cause unclear, all imaging so far negative. 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 Son however denies knowledge of old hemorrhagic stroke. Possible post radiation encephalopathy versus medication induced (patient is on Seroquel and Keppra and Dilaudid) Appreciate neurology review 2. Hx of Stage 4 glioblastoma multiforme s/p radiation and chemo at [facility] 3. Multiple drug allergies 4. Post radiation Chronic dementia with patient able to perform ADLs at baseline. 5. Dyslipidemia: statin DISPO: * Continue Supportive care * Continue PT * Needs SNF placement for rehab and monitoring * Keep myers for now till safe for OOB with nursing PROPHYLAXIS: protonix /SCDs Subjective Subjective 24 Hr Interval Summary Free Text/Dictation patient more alert, confusion more prominent Exam/Review of Systems Vital Signs Vitals Vital Signs Date Time Temp Pulse Resp B/P Pulse Ox O2 Delivery O2 Flow Rate FiO2 07/02/16 08:17 76 07/02/16 07:12 98.1 18 118/62 98 07/02/16 05:42 2.0 07/01/16 20:00 Nasal Cannula 06/30/16 01:35 28 Intake and Output 07/01/16 07/01/16 07/02/16 15:00 23:00 07:00 Intake Total 1000 ml 860 ml Output Total 1000 ml 1100 ml Balance 0 ml -240 ml Exam Constitutional: frail, oriented (x2), No distress Psych: confusion Head: normocephalic Eyes: PERRL ENMT: No mucosa pink and moist Neck: other (angled abnormally), No supple Respiratory: diminished breath sounds Gastrointestinal: bowel sounds, non-tender, soft Extremities: No edema Neurological: confused, less lethargic, No focal weakness, No nl mental status Results Result Diagram: 07/01/16 1410 07/01/16 1410 Results 24 hrs Laboratory Tests Test 07/01/16 14:10 Anion Gap 15 Basophils # 0.1 Basophils % 0.8 Blood Urea Nitrogen 15 Calcium Level 8.5 Carbon Dioxide Level 29 Chloride Level 100 Creatinine 0.69 Eosinophils # 0.0 Eosinophils % 0.5 Glucose Level 128 # Hematocrit 42.5 Hemoglobin 14.2 Lymphocytes # 0.8 Lymphocytes % 12.3 L Mean Corpuscular Hemoglobin 30.0 Mean Corpuscular Hemoglobin Concent 33.4 Mean Corpuscular Volume 89.7 Mean Platelet Volume 8.9 Monocytes # 0.8 Monocytes % 12.6 H Neutrophils # 4.5 Neutrophils % 71.6 Nucleated Red Blood Cells # 0.0 Nucleated Red Blood Cells % 0.0 Platelet Count 247 Potassium Level 4.3 Red Blood Count 4.74 Red Cell Distribution Width 14.4 Sodium Level 140 White Blood Count 6.3 Medications Medications Current Medications Ondansetron HCl (Zofran Inj) 4 mg Q6H PRN IV NAUSEA AND/OR VOMITING; Start 06/29 at 05:00 Acetaminophen (Tylenol Tab) 650 mg Q6H PRN PO PAIN LEVEL 1-3 OR FEVER; Start at 05:00 Acetaminophen/ Hydrocodone Bitart ([place] (5/325)) 1 tab Q6H PRN PO MODERATE PAIN LEVEL 4-6; Start 06/29/16 at 05:00 Magnesium Hydroxide (Milk Of Mag) 30 ml DAILY PRN PO CONSTIPATION; Start at 05:00 Sodium Biphosphate/ Sodium Phosphate (Fleet Enema) 133 ml DAILY PRN [place] CONSTIPATION; Start 06/29/16 at 05:00 Heparin Sodium (Porcine) 5000 unit 5,000 unit Q12 SC ; Start 06/29/16 at 09:00; Status Future Hold Sodium Chloride (1/2 NS) 1,000 ml @ 40 mls/hr Q24H IV Last administered on 07/01t 09:24; Admin Dose 75 MLS/HR; Start 06/29/16 at 04:46 Lorazepam (Ativan) 0.5 mg Q6H PRN IV ANXIETY; Start 06/29/16 at 05:00 Hydralazine HCl (Apresoline) 10 mg Q6H PRN IV ELEVATED BLOOD PRESSURE; Start at 05:00 Nitroglycerin (Nitroglycerin (Sl Tab) 0.4 Mg) 1 tab Q5M PRN SL ANGINA; Start at 05:00 Aspirin (Ecotrin) 325 mg DAILY PO Last administered on 07/02/16 08:34; Admin Dose 325 MG; Start 06/29/16 at 09:00 Miscellaneous Information (*Order Clarification Bulletin) MEDICATION REQUIRES CLARIFICATION:HE... Q8H XX Last administered on 06/29/16 15:25; Admin Dose 1 EA; Start 06/29/16 at 14:00 Docusate Sodium (Colace) 100 mg BID PO Last administered on 07/02/16 08:34; Admin Dose 100 MG; Start 06/30/16 at 12:00 Pantoprazole (Protonix Tab) 40 mg DAILY@06 PO Last administered on 07/02/16 05: 31; Admin Dose 40 MG; Start 07/01/16 at 06:00 Levetiracetam (Keppra) 750 mg BID PO Last administered on 07/02/16 08:34; Admin Dose 750 MG; Start 07/01/16 at 21:00 BEA MACDONALD Jul 02, 2016 11:12
[2016-07-02] MEDS: SOD CHLORIDE 0.45% 1,000 ML IV SCH (12:01)
[2016-07-02 12:23] LABS: ADD SCAN DIFF NO
[2016-07-02 12:29] LABS: ABNORMAL IP MESSAGE 1; BASOPHILS % 0.5 % (0.0-2.0); EOSINOPHILS # 0.1 10^3/ul (0.0-0.5); EOSINOPHILS % 1.2 % (0.0-7.0); HEMATOCRIT 36.8 % (37.0-47.0); HEMOGLOBIN 12.3 g/dl (12.0-16.0); LYMPHOCYTES # 0.5 10^3/ul (0.8-2.9); LYMPHOCYTES % 12.4 % (15.0-51.0); MEAN CORPUSCULAR HEMOGLOBIN 29.9 pg (29.0-33.0); MEAN CORPUSCULAR HGB CONC 33.4 g/dl (32.0-37.0); MEAN CORPUSCULAR VOLUME 89.3 fl (82.0-101.0); MONOCYTE # 0.6 10^3/ul (0.3-0.9); MONOCYTES % 13.4 % (0.0-11.0); NEUTROPHILS % 69.5 % (39.0-77.0); PLATELET COUNT 235 10^3/UL (140-415); RED BLOOD COUNT 4.12 10^6/ul (4.20-5.40); RED CELL DISTRIBUTION WIDTH 14.5 % (11.5-14.5); WHITE BLOOD COUNT 4.3 10^3/ul (4.8-10.8)
[2016-07-02 12:38] LABS: POTASSIUM 3.6 mmol/L (3.5-5.1)
[2016-07-02 12:40] LABS: CREATININE 0.69 mg/dl (0.44-1.00)
[2016-07-02 12:41] LABS: CALCIUM 8.4 mg/dl (8.4-10.2)
[2016-07-02] MEDS: ATORVASTATIN 10 MG TAB PO SCH (20:48)
[2016-07-03 06:27] LABS: ADD SCAN DIFF NO
[2016-07-03] MEDS: PANTOPRAZOLE (EC) 40 MG TAB PO SCH (06:29)
[2016-07-03 06:50] LABS: ABNORMAL IP MESSAGE 1; BASOPHILS % 0.6 % (0.0-2.0); EOSINOPHILS # 0.1 10^3/ul (0.0-0.5); HEMATOCRIT 37.7 % (37.0-47.0); HEMOGLOBIN 12.4 g/dl (12.0-16.0); LYMPHOCYTES # 0.6 10^3/ul (0.8-2.9); LYMPHOCYTES % 12.1 % (15.0-51.0); MEAN CORPUSCULAR HEMOGLOBIN 29.7 pg (29.0-33.0); MEAN CORPUSCULAR HGB CONC 32.9 g/dl (32.0-37.0); MEAN CORPUSCULAR VOLUME 90.4 fl (82.0-101.0); MEAN PLATELET VOLUME 9.7 fl (7.4-10.4); MONOCYTE # 0.7 10^3/ul (0.3-0.9); MONOCYTES % 14.4 % (0.0-11.0); NEUTROPHIL # 3.4 10^3/ul (1.6-7.5); NEUTROPHILS % 69.2 % (39.0-77.0); PLATELET COUNT 226 10^3/UL (140-415); RED BLOOD COUNT 4.17 10^6/ul (4.20-5.40); RED CELL DISTRIBUTION WIDTH 14.6 % (11.5-14.5); WHITE BLOOD COUNT 4.9 10^3/ul (4.8-10.8)
[2016-07-03 06:52] LABS: POTASSIUM 3.9 mmol/L (3.5-5.1)
[2016-07-03 06:54] LABS: CREATININE 0.6 mg/dl (0.44-1.00)
[2016-07-03 06:55] LABS: CALCIUM 8.2 mg/dl (8.4-10.2)
[2016-07-03] MEDS: SOD CHLORIDE 0.45% 1,000 ML IV SCH (07:36)
[2016-07-03 08:08] VITALS: BP 109/59; RESP 18
[2016-07-03] MEDS: ASPIRIN (EC) 325 MG TAB PO SCH (09:00)
[2016-07-03] MEDS: LEVETIRACETAM 500 MG TAB PO SCH ×2 (09:00→20:09)
[2016-07-03] MEDS: DOCUSATE SODIUM 100 MG CAP PO SCH ×2 (09:00→20:10)
--- NOTE | 2016-07-03 13:10 | PN ---
Date/Time of Note Date/Time of Note DATE: 07/03/16 TIME: 13:08 Assessment/Plan VTE Prophylaxis VTE Prophylaxis Intervention: SCD's Lines/Catheters [facility] Saline Lock Urinary Cath still in place: Yes Reason Cath still needed: other (indicate) Assessment/Plan Assessment/Plan 80-year-old female with prior history of stage IV glioblastoma who presents with slurred speech, altered mental status. 1. Acute encephalopathy: resolved cause unclear, all imaging so far negative. 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 Son however denies knowledge of old hemorrhagic stroke. Possible post radiation encephalopathy versus medication induced (patient is on Seroquel and Keppra and Dilaudid) Appreciate neurology review 2. Hx of Stage 4 glioblastoma multiforme s/p radiation and chemo at [facility] 3. Multiple drug allergies 4. Post radiation Chronic dementia with patient able to perform ADLs at baseline. 5. Dyslipidemia: statin DISPO: * Continue Supportive care * Continue PT * Needs SNF placement for rehab and monitoring PROPHYLAXIS: protonix /SCDs Subjective 24 Hr Interval Summary Free Text/Dictation Patient seen and examined. still confused, but a lot calmer and more cooperative Pulled out myers yesterday, been voiding well since Exam/Review of Systems Vital Signs Vitals Vital Signs Date Time Temp Pulse Resp B/P Pulse Ox O2 Delivery O2 Flow Rate FiO2 07/03/16 08:08 97.3 70 18 109/59 97 07/02/16 20:00 Room Air 07/02/16 15:00 2.0 06/30/16 01:35 28 Intake and Output 07/02/16 07/02/16 07/03/16 15:00 23:00 07:00 Intake Total 850 ml 440 ml 320 ml Output Total 800 ml Balance 50 ml 440 ml 320 ml Exam Constitutional: frail, oriented (x2), No distress Psych: confusion Head: normocephalic Eyes: PERRL ENMT: No mucosa pink and moist Neck: other (angled abnormally), No supple Respiratory: diminished breath sounds Gastrointestinal: bowel sounds, non-tender, soft Extremities: No edema Neurological: confused, less lethargic, No focal weakness, No nl mental status Results Result Diagram: 07/03/16 0530 07/03/16 0530 Results 24 hrs Laboratory Tests Test 07/03/16 05:30 Anion Gap 13 Basophils # 0.0 Basophils % 0.6 Blood Urea Nitrogen 16 Calcium Level 8.2 L Carbon Dioxide Level 26 Chloride Level 106 Creatinine 0.60 Eosinophils # 0.1 Eosinophils % 1.0 Glucose Level 98 Hematocrit 37.7 Hemoglobin 12.4 Lymphocytes # 0.6 L Lymphocytes % 12.1 L Mean Corpuscular Hemoglobin 29.7 Mean Corpuscular Hemoglobin Concent 32.9 Mean Corpuscular Volume 90.4 Mean Platelet Volume 9.7 Monocytes # 0.7 Monocytes % 14.4 H Neutrophils # 3.4 Neutrophils % 69.2 Nucleated Red Blood Cells # 0.0 Nucleated Red Blood Cells % 0.0 Platelet Count 226 Potassium Level 3.9 Red Blood Count 4.17 L Red Cell Distribution Width 14.6 H Sodium Level 141 White Blood Count 4.9 Medications Medications Current Medications Ondansetron HCl (Zofran Inj) 4 mg Q6H PRN IV NAUSEA AND/OR VOMITING; Start 06/29 at 05:00 Acetaminophen (Tylenol Tab) 650 mg Q6H PRN PO PAIN LEVEL 1-3 OR FEVER; Start at 05:00 Acetaminophen/ Hydrocodone Bitart ([place] (5/325)) 1 tab Q6H PRN PO MODERATE PAIN LEVEL 4-6; Start 06/29/16 at 05:00 Magnesium Hydroxide (Milk Of Mag) 30 ml DAILY PRN PO CONSTIPATION; Start at 05:00 Sodium Biphosphate/ Sodium Phosphate 133 ml 133 ml DAILY PRN [place] CONSTIPATION; Start 06/29/16 at 05:00 Sodium Chloride (1/2 NS) 1,000 ml @ 40 mls/hr Q24H IV Last administered on 07/02 12:01; Admin Dose 40 MLS/HR; Start 06/29/16 at 04:46 Lorazepam (Ativan) 0.5 mg Q6H PRN IV ANXIETY; Start 06/29/16 at 05:00 Hydralazine HCl (Apresoline) 10 mg Q6H PRN IV ELEVATED BLOOD PRESSURE; Start at 05:00 Nitroglycerin (Nitroglycerin (Sl Tab) 0.4 Mg) 1 tab Q5M PRN SL ANGINA; Start at 05:00 Aspirin (Ecotrin) 325 mg DAILY PO Last administered on 07/03/16 09:00; Admin Dose 325 MG; Start 06/29/16 at 09:00 Miscellaneous Information (*Order Clarification Bulletin) MEDICATION REQUIRES CLARIFICATION:HE... Q8H XX Last administered on 06/29/16 15:25; Admin Dose 1 EA; Start 06/29/16 at 14:00 Docusate Sodium (Colace) 100 mg BID PO Last administered on 07/03/16 09:00; Admin Dose 100 MG; Start 06/30/16 at 12:00 Pantoprazole (Protonix Tab) 40 mg DAILY@06 PO Last administered on 07/03/16 06 :29; Admin Dose 40 MG; Start 07/01/16 at 06:00 Levetiracetam (Keppra) 750 mg BID PO Last administered on 07/03/16 09:00; Admin Dose 750 MG; Start 07/01/16 at 21:00 Atorvastatin Calcium (Lipitor) 10 mg HS PO Last administered on 07/02/16 20:48 ; Admin Dose 10 MG; Start 07/02/16 at 21:00 BEA MACDONALD Jul 03, 2016 13:10
[2016-07-03] MEDS ORDERED: TEMO250C6 PO (15:59)
[2016-07-03] MEDS ORDERED: ZOF8 PO ×2 (15:59)
[2016-07-03] MEDS ORDERED: ONDANSETRON 4 MG TAB PO PRN (19:30)
[2016-07-03 19:49] VITALS: BP 89/46; RESP 18
[2016-07-03] MEDS: ATORVASTATIN 10 MG TAB PO SCH (20:10)
[2016-07-03] MEDS ORDERED: TEMOZOLOMIDE 20 MG PO SCH (21:00)
[2016-07-03] MEDS ORDERED: TEMOZOLOMIDE 100 MG PO SCH (21:00)
[2016-07-04] MEDS: SOD CHLORIDE 0.45% 1,000 ML IV SCH ×2 (01:26→07:36)
[2016-07-04] MEDS: PANTOPRAZOLE (EC) 40 MG TAB PO SCH (05:27)
[2016-07-04 06:17] LABS: ADD SCAN DIFF NO
[2016-07-04 06:25] LABS: ABNORMAL IP MESSAGE 1; BASOPHILS % 0.7 % (0.0-2.0); EOSINOPHILS # 0.1 10^3/ul (0.0-0.5); EOSINOPHILS % 1.5 % (0.0-7.0); HEMATOCRIT 34.2 % (37.0-47.0); HEMOGLOBIN 11.5 g/dl (12.0-16.0); LYMPHOCYTES # 0.6 10^3/ul (0.8-2.9); MEAN CORPUSCULAR HEMOGLOBIN 30.2 pg (29.0-33.0); MEAN CORPUSCULAR HGB CONC 33.6 g/dl (32.0-37.0); MEAN CORPUSCULAR VOLUME 89.8 fl (82.0-101.0); MEAN PLATELET VOLUME 9.4 fl (7.4-10.4); MONOCYTE # 0.7 10^3/ul (0.3-0.9); NEUTROPHILS % 66.1 % (39.0-77.0); PLATELET COUNT 229 10^3/UL (140-415); RED BLOOD COUNT 3.81 10^6/ul (4.20-5.40); RED CELL DISTRIBUTION WIDTH 14.3 % (11.5-14.5); WHITE BLOOD COUNT 4.5 10^3/ul (4.8-10.8)
[2016-07-04 06:39] LABS: POTASSIUM 4.2 mmol/L (3.5-5.1)
[2016-07-04 06:42] LABS: CREATININE 0.63 mg/dl (0.44-1.00)
[2016-07-04 06:43] LABS: CALCIUM 7.5 mg/dl (8.4-10.2)
[2016-07-04 07:59] VITALS: BP 127/60; RESP 18
[2016-07-04] MEDS: ASPIRIN (EC) 325 MG TAB PO SCH (09:19)
[2016-07-04] MEDS: LEVETIRACETAM 500 MG TAB PO SCH ×2 (09:19→21:15)
[2016-07-04] MEDS: DOCUSATE SODIUM 100 MG CAP PO SCH ×2 (09:19→21:15)
[2016-07-04] MEDS: ONDANSETRON INJ 8 MG in SOD CHLORIDE 0.9% 50 ML IV SCH (12:21)
--- NOTE | 2016-07-04 16:59 | PN ---
Date/Time of Note Date/Time of Note DATE: 07/04/16 TIME: 16:55 Assessment/Plan VTE Prophylaxis VTE Prophylaxis Intervention: SCD's VTE Contraindication Reason: anticoagulation not tolerated (heparin allergy) Lines/Catheters IV Catheter Type (from Nrsg): Peripheral IV Urinary Cath still in place: Yes Reason Cath still needed: other (indicate) Assessment/Plan Assessment/Plan 80-year-old female with prior history of stage IV glioblastoma who presents with slurred speech, altered mental status. 1. Acute encephalopathy: patient is back to basleine state of mild confusion per family cause unclear, all imaging so far negative. 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 Son however denies knowledge of old hemorrhagic stroke. Appreciate neurology review 2. Hx of Stage 4 glioblastoma multiforme s/p radiation and with ongoing chemo at [facility] Patient has been restarted on prescribed home chemo regimen for 5 days 3. Multiple drug allergies 4. Post radiation Chronic dementia with patient able to perform ADLs at baseline. 5. Dyslipidemia: statin DISPO: * Continue Supportive care * Continue PT * Needs SNF placement for rehab and monitoring PROPHYLAXIS: protonix /SCDs Subjective 24 Hr Interval Summary Free Text/Dictation patient remains stable no acute episodes started on home chemo regimen yesterday Exam/Review of Systems Vital Signs Vitals Vital Signs Date Time Temp Pulse Resp B/P Pulse Ox O2 Delivery O2 Flow Rate FiO2 07/04/16 15:38 2.0 07/04/16 07:59 98.6 76 18 127/60 93 07/03/16 08:30 Nasal Cannula Intake and Output 07/03/16 07/03/16 07/04/16 15:00 23:00 07:00 Intake Total 1280 ml 400 ml Balance 1280 ml 400 ml Exam Constitutional: frail, oriented (x2), No distress Psych: confusion Head: normocephalic Eyes: PERRL ENMT: No mucosa pink and moist Neck: other (angled abnormally only while she sleeps, she consistently refuses neck collar), No supple Respiratory: diminished breath sounds Gastrointestinal: bowel sounds, non-tender, soft Extremities: No edema Neurological: confused, less lethargic, No focal weakness, No nl mental status Results Result Diagram: 07/04/16 0529 07/04/1629 Results 24 hrs Laboratory Tests Test 07/04/16 05:29 Anion Gap 10 Basophils # 0.0 Basophils % 0.7 Blood Urea Nitrogen 15 Calcium Level 7.5 L Carbon Dioxide Level 28 Chloride Level 104 Creatinine 0.63 Eosinophils # 0.1 Eosinophils % 1.5 Glucose Level 96 Hematocrit 34.2 L Hemoglobin 11.5 L Lymphocytes # 0.6 L Lymphocytes % 13.0 L Mean Corpuscular Hemoglobin 30.2 Mean Corpuscular Hemoglobin Concent 33.6 Mean Corpuscular Volume 89.8 Mean Platelet Volume 9.4 Monocytes # 0.7 Monocytes % 15.0 H Neutrophils # 3.0 Neutrophils % 66.1 Nucleated Red Blood Cells # 0.0 Nucleated Red Blood Cells % 0.0 Platelet Count 229 Potassium Level 4.2 Red Blood Count 3.81 L Red Cell Distribution Width 14.3 Sodium Level 138 White Blood Count 4.5 L Medications Medications Current Medications Ondansetron HCl (Zofran Inj) 4 mg Q6H PRN IV NAUSEA AND/OR VOMITING; Start 06/29 at 05:00 Acetaminophen (Tylenol Tab) 650 mg Q6H PRN PO PAIN LEVEL 1-3 OR FEVER; Start at 05:00 Acetaminophen/ Hydrocodone Bitart ([place] (5/325)) 1 tab Q6H PRN PO MODERATE PAIN LEVEL 4-6; Start 06/29/16 at 05:00 Magnesium Hydroxide (Milk Of Mag) 30 ml DAILY PRN PO CONSTIPATION; Start at 05:00 Sodium Biphosphate/ Sodium Phosphate 133 ml 133 ml DAILY PRN [place] CONSTIPATION; Start 06/29/16 at 05:00 Sodium Chloride (1/2 NS) 1,000 ml @ 40 mls/hr Q24H IV Last administered on 01:26; Admin Dose 40 MLS/HR; Start 06/29/16 at 04:46 Lorazepam (Ativan) 0.5 mg Q6H PRN IV ANXIETY; Start 06/29/16 at 05:00 Hydralazine HCl (Apresoline) 10 mg Q6H PRN IV ELEVATED BLOOD PRESSURE; Start at 05:00 Nitroglycerin (Nitroglycerin (Sl Tab) 0.4 Mg) 1 tab Q5M PRN SL ANGINA; Start at 05:00 Aspirin (Ecotrin) 325 mg DAILY PO Last administered on 07/04/16 09:19; Admin Dose 325 MG; Start 06/29/16 at 09:00 Miscellaneous Information (*Order Clarification Bulletin) MEDICATION REQUIRES CLARIFICATION:HE... Q8H XX Last administered on 06/29/16 15:25; Admin Dose 1 EA; Start 06/29/16 at 14:00 Docusate Sodium (Colace) 100 mg BID PO Last administered on 07/04/16 09:19; Admin Dose 100 MG; Start 06/30/16 at 12:00 Pantoprazole (Protonix Tab) 40 mg DAILY@06 PO Last administered on 07/04/16 05 :27; Admin Dose 40 MG; Start 07/01/16 at 06:00 Levetiracetam (Keppra) 750 mg BID PO Last administered on 07/04/16 09:19; Admin Dose 750 MG; Start 07/01/16 at 21:00 Atorvastatin Calcium (Lipitor) 10 mg HS PO Last administered on 07/03/16 20:10 ; Admin Dose 10 MG; Start 07/02/16 at 21:00 Ondansetron HCl (Zofran Tab) 8 mg HS PRN PO NAUSEA AND/OR VOMITING Last administered on 07/03/16 20:08; Admin Dose 8 MG; Start 07/03/16 at 19:30 Patient Own Medication 1 ea HS PO Last administered on 07/03/16 22:41; Admin Dose 1 EA; Start 07/03/16 at 22:30; Stop 07/07/16 at 21:01 Patient Own Medication 2 ea 2 ea HS PO Last administered on 07/03/16 22:42; Admin Dose 2 EA; Start 07/03/16 at 22:30; Stop 07/07/16 at 21:01 Ondansetron HCl/ Sodium Chloride (Zofran Inj/NS) 54 ml @ 216 mls/hr Q24H IV Last administered on 07/04/16 12:21; Admin Dose 216 MLS/HR; Start 07/04/16 at 11:00 BEA MACDONALD Jul 04, 2016 16:59
[2016-07-04] MEDS ORDERED: ONDANSETRON 4 MG INJ IV SCH (20:00)
[2016-07-04] MEDS ORDERED: TEMOZOLOMIDE PO SCH (21:00)
[2016-07-04] MEDS: ATORVASTATIN 10 MG TAB PO SCH (21:15)
[2016-07-05] MEDS: SOD CHLORIDE 0.45% 1,000 ML IV SCH (03:50)
[2016-07-05] MEDS: PANTOPRAZOLE (EC) 40 MG TAB PO SCH (05:29)
[2016-07-05 07:26] LABS: ADD SCAN DIFF NO
[2016-07-05 07:30] LABS: BASOPHILS % 0.6 % (0.0-2.0); EOSINOPHILS # 0.1 10^3/ul (0.0-0.5); EOSINOPHILS % 1.5 % (0.0-7.0); HEMATOCRIT 38.7 % (37.0-47.0); HEMOGLOBIN 12.8 g/dl (12.0-16.0); LYMPHOCYTES # 0.7 10^3/ul (0.8-2.9); LYMPHOCYTES % 15.2 % (15.0-51.0); MEAN CORPUSCULAR HEMOGLOBIN 29.5 pg (29.0-33.0); MEAN CORPUSCULAR HGB CONC 33.1 g/dl (32.0-37.0); MEAN CORPUSCULAR VOLUME 89.2 fl (82.0-101.0); MEAN PLATELET VOLUME 8.7 fl (7.4-10.4); MONOCYTE # 0.6 10^3/ul (0.3-0.9); MONOCYTES % 12.7 % (0.0-11.0); NEUTROPHIL # 3.1 10^3/ul (1.6-7.5); NEUTROPHILS % 65.6 % (39.0-77.0); PLATELET COUNT 279 10^3/UL (140-415); RED BLOOD COUNT 4.34 10^6/ul (4.20-5.40); RED CELL DISTRIBUTION WIDTH 14.2 % (11.5-14.5); WHITE BLOOD COUNT 4.7 10^3/ul (4.8-10.8)
[2016-07-05 07:52] LABS: POTASSIUM 4.3 mmol/L (3.5-5.1)
[2016-07-05 07:54] LABS: CREATININE 0.7 mg/dl (0.44-1.00)
[2016-07-05 07:55] LABS: CALCIUM 8.5 mg/dl (8.4-10.2)
[2016-07-05 08:28] VITALS: BP 129/60; RESP 20
[2016-07-05] MEDS: DOCUSATE SODIUM 100 MG CAP PO SCH ×2 (09:03→20:39)
[2016-07-05] MEDS: LEVETIRACETAM 500 MG TAB PO SCH ×2 (09:04→20:40)
[2016-07-05] MEDS: ASPIRIN (EC) 325 MG TAB PO SCH (09:04)
--- NOTE | 2016-07-05 09:23 | PN ---
Date/Time of Note Date/Time of Note DATE: 07/05/16 TIME: 09:22 Assessment/Plan VTE Prophylaxis VTE Prophylaxis Intervention: SCD's Lines/Catheters IV [facility] Type (from [facility] Peripheral IV Urinary Cath still in place: No Assessment/Plan Assessment/Plan 80-year-old female with prior history of stage IV glioblastoma who presents with slurred speech, altered mental status. 1. Acute encephalopathy: resolved / patient is back to baseline state of mild confusion per family cause unclear, all imaging so far negative. 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 Son however denies knowledge of old hemorrhagic stroke. Appreciate neurology review 2. Hx of Stage 4 glioblastoma multiforme s/p radiation and with ongoing chemo at [facility] Patient has been restarted on prescribed home chemo regimen for 5 days 3. Multiple drug allergies 4. Post radiation Chronic dementia oon seroquel. 5. Dyslipidemia: statin DISPO: * Patient remains stable * Poor appetite, continue boost with meals * Continue Supportive care * Continue PT * SNF placement in the works / d/c when placement found PROPHYLAXIS: protonix /SCDs Subjective 24 Hr Interval Summary Free Text/Dictation remains stable still confused. Exam/Review of Systems Vital Signs Vitals Vital Signs Date Time Temp Pulse Resp B/P Pulse Ox O2 Delivery O2 Flow Rate FiO2 07/05/16 08:28 98.7 68 20 129/60 90 07/04/16 15:38 2.0 07/03/16 08:30 Nasal Cannula Intake and Output 07/04/16 07/04/16 07/05/16 15:00 23:00 07:00 Intake Total 1294 ml 610 ml Balance 1294 ml 610 ml Exam Constitutional: frail, oriented (x2), No distress Psych: confusion Head: normocephalic Eyes: PERRL ENMT: No mucosa pink and moist Neck: other (angled abnormally only while she sleeps, she consistently refuses neck collar), No supple Respiratory: diminished breath sounds Gastrointestinal: bowel sounds, non-tender, soft Extremities: No edema Neurological: confused, less lethargic, No focal weakness, No nl mental status Results Result Diagram: 07/05/16 0715 07/05/16 0715 Results 24 hrs Laboratory Tests Test 07/05/16 07:15 Anion Gap 15 Basophils # 0.0 Basophils % 0.6 Blood Urea Nitrogen 12 Calcium Level 8.5 Carbon Dioxide Level 30 Chloride Level 103 Creatinine 0.70 Eosinophils # 0.1 Eosinophils % 1.5 Glucose Level 92 Hematocrit 38.7 Hemoglobin 12.8 Lymphocytes # 0.7 L Lymphocytes % 15.2 Mean Corpuscular Hemoglobin 29.5 Mean Corpuscular Hemoglobin Concent 33.1 Mean Corpuscular Volume 89.2 Mean Platelet Volume 8.7 Monocytes # 0.6 Monocytes % 12.7 H Neutrophils # 3.1 Neutrophils % 65.6 Nucleated Red Blood Cells # 0.0 Nucleated Red Blood Cells % 0.0 Platelet Count 279 # Potassium Level 4.3 Red Blood Count 4.34 Red Cell Distribution Width 14.2 Sodium Level 144 White Blood Count 4.7 L Medications Medications Current Medications Ondansetron HCl (Zofran Inj) 4 mg Q6H PRN IV NAUSEA AND/OR VOMITING; Start 06/29 at 05:00 Acetaminophen (Tylenol Tab) 650 mg Q6H PRN PO PAIN LEVEL 1-3 OR FEVER; Start at 05:00 Acetaminophen/ Hydrocodone Bitart ([place] (5/325)) 1 tab Q6H PRN PO MODERATE PAIN LEVEL 4-6; Start 06/29/16 at 05:00 Magnesium Hydroxide (Milk Of Mag) 30 ml DAILY PRN PO CONSTIPATION; Start at 05:00 Sodium Biphosphate/ Sodium Phosphate 133 ml 133 ml DAILY PRN [place] CONSTIPATION; Start 06/29/16 at 05:00 Sodium Chloride (1/2 NS) 1,000 ml @ 40 mls/hr Q24H IV Last administered on 03:50; Admin Dose 40 MLS/HR; Start 06/29/16 at 04:46 Lorazepam (Ativan) 0.5 mg Q6H PRN IV ANXIETY; Start 06/29/16 at 05:00 Hydralazine HCl (Apresoline) 10 mg Q6H PRN IV ELEVATED BLOOD PRESSURE; Start at 05:00 Nitroglycerin (Nitroglycerin (Sl Tab) 0.4 Mg) 1 tab Q5M PRN SL ANGINA; Start at 05:00 Aspirin (Ecotrin) 325 mg DAILY PO Last administered on 07/05/16 09:04; Admin Dose 325 MG; Start 06/29/16 at 09:00 Docusate Sodium (Colace) 100 mg BID PO Last administered on 07/05/16 09:03; Admin Dose 100 MG; Start 06/30/16 at 12:00 Pantoprazole (Protonix Tab) 40 mg DAILY@06 PO Last administered on 07/05/16 05 :29; Admin Dose 40 MG; Start 07/01/16 at 06:00 Levetiracetam (Keppra) 750 mg BID PO Last administered on 07/05/16 09:04; Admin Dose 750 MG; Start 07/01/16 at 21:00 Atorvastatin Calcium (Lipitor) 10 mg HS PO Last administered on 07/04/16 21:15 ; Admin Dose 10 MG; Start 07/02/16 at 21:00 Ondansetron HCl (Zofran Tab) 8 mg HS PRN PO NAUSEA AND/OR VOMITING Last administered on 07/03/16 20:08; Admin Dose 8 MG; Start 07/03/16 at 19:30 Patient Own Medication 1 ea HS PO Last administered on 07/04/16 21:17; Admin Dose 1 EA; Start 07/03/16 at 22:30; Stop 07/07/16 at 21:01 Patient Own Medication 2 ea 2 ea HS PO Last administered on 07/04/16 21:18; Admin Dose 2 EA; Start 07/03/16 at 22:30; Stop 07/07/16 at 21:01 Ondansetron HCl/ Sodium Chloride (Zofran Inj/NS) 54 ml @ 216 mls/hr Q24H IV Last administered on 07/04/16 12:21; Admin Dose 216 MLS/HR; Start 07/04/16 at 11:00 BEA MACDONALD Jul 05, 2016 09:23
[2016-07-05] MEDS: ONDANSETRON INJ 8 MG in SOD CHLORIDE 0.9% 50 ML IV SCH (11:13)
[2016-07-05 20:30] VITALS: PULSE 72
[2016-07-05] MEDS: ONDANSETRON 4 MG TAB PO SCH ×2 (20:39→21:00)
[2016-07-05] MEDS: ATORVASTATIN 10 MG TAB PO SCH (20:39)
[2016-07-05] MEDS: QUETIAPINE 25 MG TAB PO SCH (20:39)
[2016-07-05 20:43] VITALS: BP 120/57; RESP 20
[2016-07-06] MEDS: PANTOPRAZOLE (EC) 40 MG TAB PO SCH (05:42)
[2016-07-06 06:01] LABS: ADD SCAN DIFF NO
[2016-07-06 06:14] LABS: ABNORMAL IP MESSAGE 1; BASOPHILS % 0.5 % (0.0-2.0); EOSINOPHILS # 0.1 10^3/ul (0.0-0.5); EOSINOPHILS % 2.5 % (0.0-7.0); HEMATOCRIT 36.2 % (37.0-47.0); HEMOGLOBIN 11.9 g/dl (12.0-16.0); LYMPHOCYTES # 0.5 10^3/ul (0.8-2.9); MEAN CORPUSCULAR HEMOGLOBIN 29.3 pg (29.0-33.0); MEAN CORPUSCULAR HGB CONC 32.9 g/dl (32.0-37.0); MEAN CORPUSCULAR VOLUME 89.2 fl (82.0-101.0); MEAN PLATELET VOLUME 9.1 fl (7.4-10.4); MONOCYTE # 0.6 10^3/ul (0.3-0.9); MONOCYTES % 13.4 % (0.0-11.0); NEUTROPHILS % 68.6 % (39.0-77.0); PLATELET COUNT 296 10^3/UL (140-415); RED BLOOD COUNT 4.06 10^6/ul (4.20-5.40); RED CELL DISTRIBUTION WIDTH 14.1 % (11.5-14.5); WHITE BLOOD COUNT 4.4 10^3/ul (4.8-10.8)
[2016-07-06 06:31] LABS: POTASSIUM 3.7 mmol/L (3.5-5.1)
[2016-07-06 06:34] LABS: CREATININE 0.66 mg/dl (0.44-1.00)
[2016-07-06 06:35] LABS: CALCIUM 8.8 mg/dl (8.4-10.2)
[2016-07-06 07:49] VITALS: BP 120/62; RESP 18
[2016-07-06] MEDS: ASPIRIN (EC) 325 MG TAB PO SCH (08:48)
[2016-07-06] MEDS: DOCUSATE SODIUM 100 MG CAP PO SCH ×2 (08:48→21:16)
[2016-07-06] MEDS: QUETIAPINE 25 MG TAB PO SCH ×2 (08:49→21:16)
[2016-07-06] MEDS: LEVETIRACETAM 500 MG TAB PO SCH ×2 (08:49→21:16)
--- NOTE | 2016-07-06 18:37 | PN ---
Date/Time of Note Date/Time of Note DATE: 07/06/16 TIME: 18:33 Assessment/Plan VTE Prophylaxis VTE Prophylaxis Intervention: SCD's Lines/Catheters IV Catheter Type (from [facility]): Saline Lock Urinary Cath still in place: No Assessment/Plan Chief Complaint/Hosp Course 1. 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 Son however denies knowledge of old hemorrhagic stroke. Neuro consult appreciated 2. Hx of Stage 4 glioblastoma multiforme s/p radiation and with ongoing chemo at [facility] Per the patient's son patient will continue chemotherapy 3. Debility Son is looking for a SNF Prophylaxis: SCDs Problems: Subjective 24 Hr Interval Summary Subjective hx not possible: pt non-verbal Exam/Review of Systems Vital Signs Vitals Vital Signs Date Time Temp Pulse Resp B/P Pulse Ox O2 Delivery O2 Flow Rate FiO2 07/06/16 07:49 98.8 80 18 120/62 93 07/05/16 20:30 Room Air 07/04/16 15:38 2.0 Intake and Output 07/05/16 07/05/16 07/06/16 15:00 23:00 07:00 Intake Total 854 ml 350 ml Balance 854 ml 350 ml Exam Constitutional: non-verbal Respiratory: clear to auscultation Cardiovascular: regular rate and rhythm Gastrointestinal: soft, No distended Musculoskeletal: nl extremities to inspection Results Result Diagram: 07/06/16 0518 07/06/16 0518 Results 24 hrs Laboratory Tests Test 07/06/16 05:18 Anion Gap 15 Basophils # 0.0 Basophils % 0.5 Blood Urea Nitrogen 12 Calcium Level 8.8 Carbon Dioxide Level 32 H Chloride Level 102 Creatinine 0.66 Eosinophils # 0.1 Eosinophils % 2.5 Glucose Level 92 Hematocrit 36.2 L Hemoglobin 11.9 L Lymphocytes # 0.5 L Lymphocytes % 12.0 L Mean Corpuscular Hemoglobin 29.3 Mean Corpuscular Hemoglobin Concent 32.9 Mean Corpuscular Volume 89.2 Mean Platelet Volume 9.1 Monocytes # 0.6 Monocytes % 13.4 H Neutrophils # 3.0 Neutrophils % 68.6 Nucleated Red Blood Cells # 0.0 Nucleated Red Blood Cells % 0.0 Platelet Count 296 Potassium Level 3.7 Red Blood Count 4.06 L Red Cell Distribution Width 14.1 Sodium Level 145 H White Blood Count 4.4 L Medications Medications Current Medications Ondansetron HCl (Zofran Inj) 4 mg Q6H PRN IV NAUSEA AND/OR VOMITING; Start 06/29 at 05:00 Acetaminophen (Tylenol Tab) 650 mg Q6H PRN PO PAIN LEVEL 1-3 OR FEVER; Start at 05:00 Acetaminophen/ Hydrocodone Bitart (Rapidan (5/325)) 1 tab Q6H PRN PO MODERATE PAIN LEVEL 4-6; Start 06/29/16 at 05:00 Magnesium Hydroxide (Milk Of Mag) 30 ml DAILY PRN PO CONSTIPATION Last administered on 07/06/16 00:11; Admin Dose 30 ML; Start 06/29/16 at 05:00 Sodium Biphosphate/ Sodium Phosphate (Fleet Enema) 133 ml DAILY PRN [place] CONSTIPATION; Start 06/29/16 at 05:00 Lorazepam (Ativan) 0.5 mg Q6H PRN IV ANXIETY; Start 06/29/16 at 05:00 Hydralazine HCl (Apresoline) 10 mg Q6H PRN IV ELEVATED BLOOD PRESSURE; Start at 05:00 Nitroglycerin (Nitroglycerin (Sl Tab) 0.4 Mg) 1 tab Q5M PRN SL ANGINA; Start at 05:00 Aspirin (Ecotrin) 325 mg DAILY PO Last administered on 07/06/16 08:48; Admin Dose 325 MG; Start 06/29/16 at 09:00 Docusate Sodium (Colace) 100 mg BID PO Last administered on 07/06/16 08:48; Admin Dose 100 MG; Start 06/30/16 at 12:00 Pantoprazole (Protonix Tab) 40 mg DAILY@06 PO Last administered on 07/06/16 05 :42; Admin Dose 40 MG; Start 07/01/16 at 06:00 Levetiracetam (Keppra) 750 mg BID PO Last administered on 07/06/16 08:49; Admin Dose 750 MG; Start 07/01/16 at 21:00 Atorvastatin Calcium (Lipitor) 10 mg HS PO Last administered on 07/05/16 20:39 ; Admin Dose 10 MG; Start 07/02/16 at 21:00 Patient Own Medication 1 ea HS PO Last administered on 07/05/16 21:31; Admin Dose 1 EA; Start 07/03/16 at 22:30; Stop 07/07/16 at 21:01 Patient Own Medication 2 ea HS PO Last administered on 07/05/16 21:32; Admin Dose 2 EA; Start 07/03/16 at 22:30; Stop 07/07/16 at 21:01 Ondansetron HCl (Zofran Tab) 8 mg HS PO Last administered on 07/05/16 20:39; Admin Dose 8 MG; Start 07/05/16 at 20:00; Stop 07/08/16 at 19:59 Quetiapine Fumarate (Seroquel) 25 mg BID PO Last administered on 07/06/16 08: 49; Admin Dose 25 MG; Start 07/05/16 at 21:00 BRIA MONTEJO Jul 06, 2016 18:37
[2016-07-06 20:28] VITALS: BP 115/69; RESP 18
[2016-07-06] MEDS: ONDANSETRON 4 MG TAB PO SCH (21:16)
[2016-07-06] MEDS: ATORVASTATIN 10 MG TAB PO SCH (21:16)
[2016-07-07] MEDS: PANTOPRAZOLE (EC) 40 MG TAB PO SCH (05:34)
[2016-07-07 08:02] VITALS: BP 107/57; RESP 18
[2016-07-07] MEDS: LEVETIRACETAM 500 MG TAB PO SCH ×2 (09:04→20:52)
[2016-07-07] MEDS: ASPIRIN (EC) 325 MG TAB PO SCH (09:04)
[2016-07-07] MEDS: QUETIAPINE 25 MG TAB PO SCH ×2 (09:04→22:30)
[2016-07-07] MEDS: DOCUSATE SODIUM 100 MG CAP PO SCH ×2 (09:04→20:52)
--- NOTE | 2016-07-07 16:49 | PN ---
Date/Time of Note Date/Time of Note DATE: 07/07/16 TIME: 16:47 Assessment/Plan VTE Prophylaxis VTE Prophylaxis Intervention: SCD's Lines/Catheters IV Catheter Type (from Nrs): Saline Lock Urinary Cath still in place: No Assessment/Plan Chief Complaint/Hosp Course 1. 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 Son however denies knowledge of old hemorrhagic stroke. Neuro consult appreciated 2. Hx of Stage 4 glioblastoma multiforme s/p radiation and with ongoing chemo at [facility] Per the patient's son patient will continue chemotherapy 3. Debility Son is looking for a SNF Prophylaxis: SCDs Problems: Subjective 24 Hr Interval Summary Constitutional: disoriented Exam/Review of Systems Vital Signs Vitals Vital Signs Date Time Temp Pulse Resp B/P Pulse Ox O2 Delivery O2 Flow Rate FiO2 07/07/16 08:02 97.7 80 18 107/57 96 07/07/16 02:29 2.0 07/05/16 20:30 Room Air Intake and Output 07/06/16 07/06/16 07/07/16 15:00 23:00 07:00 Intake Total 480 ml 120 ml Balance 480 ml 120 ml Exam Psych: confusion Respiratory: clear to auscultation Cardiovascular: regular rate and rhythm Gastrointestinal: soft, No distended Musculoskeletal: nl extremities to inspection Results Result Diagram: 07/06/1651707/06/16517 Medications Medications Current Medications Ondansetron HCl (Zofran Inj) 4 mg Q6H PRN IV NAUSEA AND/OR VOMITING; Start 06/29 at 05:00 Acetaminophen (Tylenol Tab) 650 mg Q6H PRN PO PAIN LEVEL 1-3 OR FEVER; Start at 05:00 Acetaminophen/ Hydrocodone Bitart ([place] (5/325)) 1 tab Q6H PRN PO MODERATE PAIN LEVEL 4-6; Start 06/29/16 at 05:00 Magnesium Hydroxide (Milk Of Mag) 30 ml DAILY PRN PO CONSTIPATION Last administered on 07/06/16 00:11; Admin Dose 30 ML; Start 06/29/16 at 05:00 Sodium Biphosphate/ Sodium Phosphate (Fleet Enema) 133 ml DAILY PRN [place] CONSTIPATION Last administered on 07/07/16 04:02; Admin Dose 133 ML; Start 06/29 at 05:00 Lorazepam (Ativan) 0.5 mg Q6H PRN IV ANXIETY; Start 06/29/16 at 05:00 Hydralazine HCl (Apresoline) 10 mg Q6H PRN IV ELEVATED BLOOD PRESSURE; Start at 05:00 Nitroglycerin (Nitroglycerin (Sl Tab) 0.4 Mg) 1 tab Q5M PRN SL ANGINA; Start at 05:00 Aspirin (Ecotrin) 325 mg DAILY PO Last administered on 07/07/16 09:04; Admin Dose 325 MG; Start 06/29/16 at 09:00 Docusate Sodium (Colace) 100 mg BID PO Last administered on 07/07/16 09:04; Admin Dose 100 MG; Start 06/30/16 at 12:00 Pantoprazole (Protonix Tab) 40 mg DAILY@06 PO Last administered on 07/06/16 05 :42; Admin Dose 40 MG; Start 07/01/16 at 06:00 Levetiracetam (Keppra) 750 mg BID PO Last administered on 07/07/16 09:04; Admin Dose 750 MG; Start 07/01/16 at 21:00 Atorvastatin Calcium (Lipitor) 10 mg HS PO Last administered on 07/06/16 21:16 ; Admin Dose 10 MG; Start 07/02/16 at 21:00 Patient Own Medication 1 ea HS PO Last administered on 07/05/16 21:31; Admin Dose 1 EA; Start 07/03/16 at 22:30; Stop 07/07/16 at 21:01 Patient Own Medication 2 ea HS PO Last administered on 07/05/16 21:32; Admin Dose 2 EA; Start 07/03/16 at 22:30; Stop 07/07/16 at 21:01 Ondansetron HCl (Zofran Tab) 8 mg HS PO Last administered on 07/06/16 21:16; Admin Dose 8 MG; Start 07/05/16 at 20:00; Stop 07/08/16 at 19:59 Quetiapine Fumarate (Seroquel) 25 mg BID PO Last administered on 07/07/16 09: 04; Admin Dose 25 MG; Start 3/12/17 at 21:00 BRIA MONTEJO Jul 07, 2016 16:49
[2016-07-07 19:00] VITALS: BP 123/57; RESP 18
[2016-07-07] MEDS: ONDANSETRON 4 MG TAB PO SCH (20:52)
[2016-07-07] MEDS: ATORVASTATIN 10 MG TAB PO SCH (20:52)
[2016-07-08] MEDS: PANTOPRAZOLE (EC) 40 MG TAB PO SCH (06:50)
[2016-07-08 08:17] VITALS: BP 105/55; RESP 20
[2016-07-08 08:24] LABS: POTASSIUM 3.8 mmol/L (3.5-5.1)
[2016-07-08 08:27] LABS: CREATININE 0.77 mg/dl (0.44-1.00)
[2016-07-08 08:28] LABS: CALCIUM 8.4 mg/dl (8.4-10.2)
[2016-07-08] MEDS: QUETIAPINE 25 MG TAB PO SCH (08:59)
[2016-07-08] MEDS: DOCUSATE SODIUM 100 MG CAP PO SCH (09:02)
[2016-07-08] MEDS: LEVETIRACETAM 500 MG TAB PO SCH (09:08)
[2016-07-08] MEDS: ASPIRIN (EC) 325 MG TAB PO SCH (09:08)
--- NOTE | 2016-07-08 15:54 | DS ---
DATE OF ADMISSION: 07/01/2016 DATE OF DISCHARGE: 07/08/2016 DISCHARGE DIAGNOSES: 1. [id number] encephalopathy. The patient's acute components of confusion have stabilized an d no acute etiology was noted. 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 Encephal opathy, likely secondary to stage IV glioblastoma with sequelae from the radiation and chemo. 2. Stage IV glioblastoma, status post radiation with ongoing chemo. The patient will continue chem otherapy. 3. Debility secondary to the glioblastoma. The patient has been discharged to alf faci lity as her mentation is poor and she is too weak to live on her own. HOSPITAL COURSE: The patient is an 80-year-old unfortunate female with a history of stage IV gliobl astoma multiforme, status post radiation chemotherapy. Patient presented with acute encephalopathy, slurred speech. The patient had a workup with a brain MRI that showed no acute pathology. There i s a small area of signal abnormality, compatible with chronic hemorrhage in the right temporal occip ital region. No significant mass effect noted. There is also severe white matter changes which may represent post-radiation changes and there are chronic small vessel ischemic changes, no evidence o f any infection was noted during hospitalization and white count was within normal limits. UA was w ithin normal limits. Patient's chest x-ray did show bilateral interstitial markings which were felt to be chronic lung changes versus interstitial edema. The patient's microbiology showed negative b lood culture and urine culture. U-tox was negative. Hence, no acute etiology can be explained for the altered mental status. It was felt that this is likely a sequelae of her radiation therapy for the glioblastoma. Mentation did stabilize throughout her hospitalization but she continued to displ ay signs of dementia and debility. The patient's son did not feel that he could care for her in her current condition and it was decided that the patient will need stent placement. Case management d id work with the patient's son and a SNF was found. On the day of discharge, the patient's vitals, labs, physical exam were stable. Questions were answered. CONDITION ON DISCHARGE: Stable. DISPOSITION: To alf facility. MEDICATIONS: The patient is going to continue her usual medications. The Diulo was recommended to be stopped. The patient was given medications for constipation as needed. FOLLOWUP: The patient will need to follow up with physicians at the alf facility and th e patient's oncologist will follow. The patient is also to follow up with her PCP. Greater than 30 minutes was spent coordinating discharge of the patient. Dictated By: BRIA MONTEJO MD BS/NTS Conf#: [id number] DID#: [id number]
== END 2016-07-08 15:00 | DRG 92 ==
LOC: E/R 23:13 → TEL 06-29 02:10 → OBSVTOIN 07-01 10:05 → MS2 07-02 13:49
PROVIDERS: ADMIT Hospitalist; ATTEND Hospitalist
DX: G92 Toxic encephalopathy (principal); C71.9 Malignant neoplasm of brain, unspecified; F03.90 Unspecified dementia, unspecified severity, without behavioral disturbance, psychotic disturbance, mood disturbance, and anxiety; R44.3 Hallucinations, unspecified; G93.89 Other specified disorders of brain; E86.0 Dehydration; T45.1X5S Adverse effect of antineoplastic and immunosuppressive drugs, sequela; E78.5 Hyperlipidemia, unspecified; Z92.3 Personal history of irradiation; Z79.899 Other long term (current) drug therapy; Z98.1 Arthrodesis status; Z86.73 Personal history of transient ischemic attack (TIA), and cerebral infarction without residual deficits; Z88.6 Allergy status to analgesic agent; Z88.2 Allergy status to sulfonamides; Z88.1 Allergy status to other antibiotic agents
CPT/HCPCS: 36415; 70450; 70551; 71010; 80048; 80053; 80061; 80307; 81001; 81003; 82962; 83036; 83735; 84100; 84439; 84443; 84484; 85025; 85610; 85730; 87040; 87081; 87086; 92526; 92610; 93005; 93306; 93880; 95819; 96374; 97163; G0378; C9113; J1170; J2405; J7040